=== PATIENT | female | born 1930 | race Caucasian/White ===

== ENCOUNTER 2018-02-19 16:01 | Inpatient (IN) | payer OTHER ==
--- NOTE | 2018-02-19 16:11 | EDPHY ---
HPI/HX/ROS/PE/MDM Narrative: CHIEF COMPLAINT: Dizziness, abnormal EKG HPI: This patient is an 87 year old female who is generally quite healthy. She arrives via EMS for evaluation of irregular heart rate. She states this has been ongoing intermittently for one year. She suspects this is sometimes provoked by her upstairs neighbor stomping around. She denies any chest pain. No recent cold symptoms or fever. She has right leg lymphedema which she states has been chronic since her mid 20s, but is somewhat worse lately as she has not been elevating the leg as much as usual. No shortness of breath, lightheadedness , extremity numbness or paresthesias, headaches, or other associated symptoms. HPI somewhat difficult to obtain as patient is a poor historian. REVIEW OF SYSTEMS: A comprehensive 10 system review of systems is otherwise negative aside from elements mentioned in the history of present illness and medical decision making. PMH: Chronic right lower extremity edema. SOCIAL HISTORY: Lives at [facility]. Retired. Single. PHYSICAL EXAM: General:Patient is alert, in no acute distress. ENT:Eyes are normal to inspection. ENT inspection normal. Neck: Normal inspection. Full range of motion. Respiratory:No respiratory distress. Breath sounds normal bilaterally. Cardiovascular: Regular tachycardia. Strong peripheral pulses. Normal cap refill. Abdomen:The abdomen is nontender to palpation. There are no peritoneal signs. There are normal bowel sounds. Back: Normal to inspection. No tenderness to palpation. Skin: Normal color. No rash. Warm and dry. Extremities: Normal appearance. Full range of motion. Neuro: Oriented x3. Normal motor function. Normal sensory function. ED Course: 87 y/o female presents for evaluation of irregular heart rate, dizziness. Regular tachycardia on exam. She does have considerable right lower extremity edema, which she states is chronic for her. Plan for EKG, labs including CBC, chemistries, troponin, d-dimer. EKG was ordered and interpreted by myself. Please see [employer] system for official reading. Sinus tachycardia with frequent PVCs. D-dimer elevated at 3.16. Troponin negative. Plan for CTA chest for further evaluation. Plan for additional labs including UA. 17:[address] Dewey, radiologist. CTA negative for PE. See report for additional details. Discussed results with patient. Plan to admit for further evaluation. She is amenable to this. Plan for additional labs including flu swab, TSH. 18:[address] Pineda, hospitalist. He accepts admission for dizziness, tachycardia. MDM: This patient presents with vague symptoms and is found to be in sinus tachycardia with frequent PVCs. The chronicity of this is unknown and limited by fact that patient is a poor historian. Extensive workup in the ED reveals no clear etiology for tachycardia. Patient requires admission for further workup. I see no signs of influenza, atrial fibrillation, ACS, hyperthyroidism , sepsis. - Data Points Imaging Results: Imaging Impressions Chest/Thorax CTA 02/19/18 17:06 Impression: 1. No visible pulmonary embolus. 2. Tiny bilateral pleural effusions. 3. Mild cardiomegaly. 4. Incompletely visualized left kidney, with parapelvic cyst versus mild hydronephrosis. 5. Borderline enlargement of the pulmonary arteries, which can be seen with pulmonary artery hypertension. 6. Additional findings, as above. Findings discussed with Tom Yan M.D., on February 19, 2018 at 1752. Imaging: Discussed imaging studies w/ on call Radiologist Laboratory Results: Laboratory Results 02/19/18 16:00 02/19/18 16:00 02/19/18 02/19/18 02/19/18 18:15 17:00 16:10 WBC RBC Hgb Hct MCV MCH MCHC RDW Plt Count MPV Neut % (Auto) Lymph % (Auto) Conway % (Auto) Eos % (Auto) Baso % (Auto) Nucleat RBC Rel Count Absolute Neuts (auto) Absolute Lymphs (auto) Absolute Monos (auto) Absolute Eos (auto) Absolute Basos (auto) Absolute Nucleated RBC Immature Gran % Immature Gran # RBC/WBC/PLT Morphology Platelet Estimate D-Dimer Sodium Potassium Chloride Carbon Dioxide Anion Gap BUN Creatinine Estimated GFR Glucose Calcium POC Troponin I 0.00 ng/mL ng/mL (0.00-0.08) TSH Urine Color YELLOW Urine Appearance CLEAR Urine pH 7.0 (5.0-7.5) Ur Specific [place] 1.011 (1.002-1.030) Urine Protein NEGATIVE (NEGATIVE) Urine Ketones NEGATIVE (NEGATIVE) Urine Blood NEGATIVE (NEGATIVE) Urine Nitrate NEGATIVE (NEGATIVE) Urine Bilirubin NEGATIVE (NEGATIVE) Urine Urobilinogen 4.0 EU H EU (0.2-1.0) Ur Leukocyte Esterase NEGATIVE (NEGATIVE) Urine Glucose NEGATIVE (NEGATIVE) Nasal Influenza A PCR NEGATIVE FOR FLU A (NEGATIVE) Nasal Influenza B PCR NEGATIVE FOR FLU B (NEGATIVE) 02/19/18 02/19/18 02/19/18 16:00 16:00 16:00 WBC RBC Hgb Hct MCV MCH MCHC RDW Plt Count MPV Neut % (Auto) Lymph % (Auto) Conway % (Auto) Eos % (Auto) Baso % (Auto) Nucleat RBC Rel Count Absolute Neuts (auto) Absolute Lymphs (auto) Absolute Monos (auto) Absolute Eos (auto) Absolute Basos (auto) Absolute Nucleated RBC Immature Gran % Immature Gran # RBC/WBC/PLT Morphology Platelet Estimate D-Dimer 3.16 ug/mLFEU H ug/mLFEU (0.00-0.50) Sodium 139 mEq/L mEq/L (135-145) Potassium 4.3 mEq/L mEq/L (3.5-5.2) Chloride 106 mEq/L mEq/L (97-110) Carbon Dioxide 26 mEq/l mEq/l (22-31) Anion Gap 7 mEq/L mEq/L (6-14) BUN 23 mg/dL mg/dL (7-23) Creatinine 0.8 mg/dL mg/dL (0.6-1.0) Estimated GFR > 60 Glucose 119 mg/dL H mg/dL (70-100) Calcium 9.0 mg/dL mg/dL (8.5-10.4) POC Troponin I TSH 2.050 uIU/mL uIU/mL (0.465-4.680) Urine Color Urine Appearance Urine pH Ur Specific [place] Urine Protein Urine Ketones Urine Blood Urine Nitrate Urine Bilirubin Urine Urobilinogen Ur Leukocyte Esterase Urine Glucose Nasal Influenza A PCR Nasal Influenza B PCR 02/19/18 16:00 WBC 10.97 10^3/uL H 10^3/uL (3.80-9.50) RBC 4.53 10^6/uL 10^6/uL (4.18-5.33) Hgb 13.8 g/dL g/dL (12.6-16.3) Hct 42.4 % % (38.0-47.0) MCV 93.6 fL fL (81.5-99.8) MCH 30.5 pg pg (27.9-34.1) MCHC 32.5 g/dL g/dL (32.4-36.7) RDW 13.7 % % (11.5-15.2) Plt Count 139 10^3/uL L 10^3/uL (150-400) MPV 10.0 fL fL (8.7-11.7) Neut % (Auto) 90.0 % H % (39.3-74.2) Lymph % (Auto) 2.6 % L % (15.0-45.0) Conway % (Auto) 6.6 % % (4.5-13.0) Eos % (Auto) 0.0 % L % (0.6-7.6) Baso % (Auto) 0.2 % L % (0.3-1.7) Nucleat RBC Rel Count 0.0 % % (0.0-0.2) Absolute Neuts (auto) 9.87 10^3/uL H 10^3/uL (1.70-6.50) Absolute Lymphs (auto) 0.29 10^3/uL L 10^3/uL (1.00-3.00) Absolute Monos (auto) 0.72 10^3/uL 10^3/uL (0.30-0.80) Absolute Eos (auto) 0.00 10^3/uL L 10^3/uL (0.03-0.40) Absolute Basos (auto) 0.02 10^3/uL 10^3/uL (0.02-0.10) Absolute Nucleated RBC 0.00 10^3/uL 10^3/uL (0-0.01) Immature Gran % 0.6 % % (0.0-1.1) Immature Gran # 0.07 10^3/uL 10^3/uL (0.00-0.10) RBC/WBC/PLT Morphology TNP Platelet Estimate TNP D-Dimer Sodium Potassium Chloride Carbon Dioxide Anion Gap BUN Creatinine Estimated GFR Glucose Calcium POC Troponin I TSH Urine Color Urine Appearance Urine pH Ur Specific [place] Urine Protein Urine Ketones Urine Blood Urine Nitrate Urine Bilirubin Urine Urobilinogen Ur Leukocyte Esterase Urine Glucose Nasal Influenza A PCR Nasal Influenza B PCR Medications Given: Discontinued Medications Sodium Chloride (Ns) 500 mls @ 0 mls/hr IV EDNOW ONE; Wide Open PRN Reason: Protocol Stop: 02/19/18 16:13 Last Admin: 02/19/18 16:24 Dose: 500 mls Point of Care Test Results: Chemistry 02/19/18 16:10 POC Troponin I 0.00 ng/mL ng/mL (0.00-0.08) General Time Seen by Provider: 02/19/18 16:03 Initial Vital Signs: Initial Vital Signs Temperature (C) 36.6 C 02/19/18 16:09 Heart Rate 113 H 02/19/18 16:09 Respiratory Rate 18 02/19/18 16:09 Blood Pressure 123/76 H 02/19/18 16:09 O2 Sat (%) 96 02/19/18 16:09 O2 Delivery Mode Room Air Allergies/Adverse Reactions: No Known Allergies Allergy (Unverified 02/19/18 16:09) Home Medications: Medication Instructions Recorded NK [No Known Home Meds] 02/19/18 Departure - Departure Disposition: [facility] Acute Clinical Impression: Dizziness Condition: Good Report Scribed for: Tom Yan Report Scribed by: Annalee Corbin Date of Report: 02/19/18 Time of Report: 16:08 Physician Review and Approval Statement: Portions of this note were transcribed by an ED scribe. I personally performed the history, physical exam, and medical decision making; and confirm the accuracy of the information in the transcribed note.
[2018-02-19] MEDS ORDERED: NS 500 ML IV ONE (16:12)
[2018-02-19 16:22] LABS: PLATELET COUNT 139 10^3/uL (150-400)
[2018-02-19] MEDS ORDERED: IOPAMIDOL (ISOVUE 370) 100 ML BTL IV ONE (17:11)
[2018-02-19] MEDS ORDERED: ONDANSETRON DISINTEGRATING 4 MG TAB PO PRN (19:37)
[2018-02-19] MEDS ORDERED: ONDANSETRON 4 MG/2 ML VIAL IVP PRN (19:37)
[2018-02-19] MEDS ORDERED: ACETAMINOPHEN 325 MG TAB PO PRN (19:37)
[2018-02-19] MEDS ORDERED: NS 1,000 ML IV SCH (19:45)
--- NOTE | 2018-02-19 20:30 | GHP ---
DATE OF ADMISSION: 02/19/2018 CHIEF COMPLAINT: Lightheadedness. HISTORY OF PRESENT ILLNESS: This is an 87-year-old female, who presents with lightheadedness. She l gabby at [facility]. She attributes her symptoms to her neighbor stomping around above her. She tyler cribes it as a mild lightheadedness that is worse when she walks; this is not really a dizziness. Yong breaux really has no other symptoms, including chest pain or shortness of breath. She did throw up once t his morning, and has not really been able to eat since then today. She has had no diarrhea. She is feeling hungry now and less nauseous. She denies other symptoms, including, recent fevers, headache, cough, sore throat, new rash. She has chronic lymphedema in her right leg. PAST MEDICAL/SURGICAL HISTORY: 1. Lymphedema. 2. Basal cell skin cancer, status post resection. 3. Cataract surgery. MEDICATIONS: Please see medication reconciliation. ALLERGIES: No known drug allergies. SOCIAL HISTORY: She lives at [facility]. She does not drink or smoke. FAMILY HISTORY: Reviewed and noncontributory. REVIEW OF SYSTEMS: A 10-point review of systems is conducted and is negative, except per HPI. PHYSICAL EXAM: VITAL SIGNS: Blood pressure 138/77, heart rate 106, respiration rate 20, saturating 97% on room air, temperature 36.6. GENERAL: The patient is a pleasant lady who is resting comfortab ly in no acute distress. HEENT: Normocephalic, atraumatic. CARDIOVASCULAR: Regular rate and rhyth m. No murmurs, rubs, or gallops. She is borderline tachycardic. PULMONARY: Lungs clear to auscult ation bilaterally. ABDOMEN: Soft, nontender, nondistended. SKIN: No rash. : No Leonardo. NEUROL OGIC: Alert and oriented x3. She is moving all extremities. PSYCHIATRIC: Normal mood and affect. LABS: White count is 10.9, platelets are 139. D-dimer is 3.1. Basic metabolic panel is normal. Tr oponin is negative. TSH is 2.0. Urinalysis is negative. Flu is negative. DATA: 1. Discussed with Dr. Yan. Will admit to med/surg with telemetry monitoring. 2. I personally viewed and interpreted her EKG. This shows this is either a sinus rhythm or a multi focal atrial tachycardia. I do not see any acute ischemic changes. 3. Chest and thorax CT angiogram shows no evidence of a PE. IMPRESSION AND PLAN: An 87-year-old female, admitted with ongoing tachycardia of unclear etiology. Tachycardia: She did have 1 episode of emesis, and has not tolerated much p.o. this morning. This d oes put her at risk for hypovolemia. Her EKG, I believe, shows multifocal atrial tachycardia. Her r ate is already dropping into the 80s when I am seeing her. I think it is reasonable to try some gent le hydration tonight, and consider low-dose trin[place] blockers tomorrow if she is still borderline tachyc ardic. Fortunately, other more life-threatening etiologies have been ruled out. I do not have any e vidence of an infection, either. This is a high-risk diagnosis, requiring ongoing monitoring on telemetry. Will recheck a troponin in the morning, as well. /[id number]/MODL
[2018-02-20 10:07] LABS: PLATELET COUNT 119 10^3/uL (150-400)
--- NOTE | 2018-02-20 16:10 | HOSPPROG ---
Hospitalist Progress Note Assessment/Plan: 87 year old female with pmh of basal cell carcinoma, lymphedema admitted with tachycardia after saying she felt mildly lightheaded. Noted to be jaundice this morning with labs showing hyperbilirubinemia and transaminitis. Tachycardia- ECG with sinus tach and lots of PACs, now tachycardia resolved. May have been due to hypovolemia as it seems to have resolved with fluids. Transaminitis- labs coincidentally revealed a fairly substantial transaminitis that is not suggestive of obstruction and patient is asymptomatic. US of her liver and abdomen showed only gallstones but no sludge or cholecystitis and no elevated alk phos. patient does not take any apap or medications that would cause elevated LFTs, no history of hepatitis, -check acute hep panel -check apap level -repeat LFTs in am Lymphedema- chronically swollen lower extremity. elevate leg and compression stocking. PPX-lovenox Fluids- NS Lytes- WNL nutrition- regular Cor- DNR Dispo- change to inpatient for further eval of hyperbilirubinemia and transaminitis Subjective: patient with no complaints today, eating fine, no ab pain, NV diarrhea or fevers. Objective: Vital Signs Temp Pulse Resp BP Pulse Ox 36.4 C 85 18 126/78 H 94 02/20/18 12:00 02/20/18 12:00 02/20/18 12:00 02/20/18 12:00 02/20/18 12:00 Laboratory Results 02/20/18 09:00 02/20/18 09:00 02/19/18 02/20/18 02/21/18 05:59 05:59 05:59 Intake Total 908 Balance 908 - Physical Exam Constitutional: no apparent distress, appears nourished, not in pain Eyes: PERRL, anicteric sclera, EOMI Ears, Nose, Mouth, Throat: moist mucous membranes, hearing normal, ears appear normal, no oral mucosal ulcers Cardiovascular: regular rate and rhythym, no murmur, rub, or gallop Respiratory: no respiratory distress, no rales or rhonchi, clear to auscultation Gastrointestinal: normoactive bowel sounds, soft, non-tender abdomen, no palpable masses Genitourinary: no bladder fullness, no bladder tenderness, no renal bruits Skin: other (jaundice and scleral icterus, lymphedema of LE with no evidence of infection) Musculoskeletal: full muscle strength, no muscle tenderness, normal joint ROM Neurologic: AAOx3, sensation intact bilaterally Psychiatric: interacting appropriately, not anxious, not encephalopathic, thought process linear Lymph, Heme, Immunologic: no cervical LAD, no supraclavicular LAD ICD10 Worksheet Patient Problems: Problems Problem Status Onset Dizziness Acute
--- NOTE | 2018-02-20 16:29 | PDMN ---
Medical Necessity Medical necessity: Pt meets INPT criteria per MD as of 02/20/18 and [facility] Gastroenterology [facility] (est. LOS >2 MN for further evaluation of hyperbilirubinemia and transaminitis; hx tachycardia - resolved and lymphedema).
[2018-02-21 03:12] LABS: HEPATITIS A ANTIBODY IGM (BCH) NEGATIVE (NEGATIVE); HEPATITIS B CORE AB IGM NEGATIVE (NEGATIVE); HEPATITIS B SURFACE ANTIGEN NEGATIVE (NEGATIVE); HEPATITIS C ANTIBODY TOTAL NEGATIVE (NEGATIVE)
[2018-02-21 05:28] LABS: PLATELET COUNT 126 10^3/uL (150-400)
--- NOTE | 2018-02-21 10:34 | CPEKG ---
Test Reason : OPEN Blood Pressure : / mmHG Vent. Rate : 094 BPM Atrial Rate : 054 BPM P-R Int : 138 ms QRS Dur : 082 ms QT Int : 323 ms P-R-T Axes : 057 042 035 degrees QTc Int : 404 ms Sinus tachycardia Multiple premature complexes, vent & supraven Confirmed by Tom Yan ([id number]) on 02/21/2018 10:34:20 AM Referred By: Confirmed By:Tom Yan
--- NOTE | 2018-02-21 14:22 | ASMTCMCOM ---
CM Note CM Note Notes: 87yo female admitted from [facility] for dizziness, borderline tachy. She has a Hx of Chronic lymphedema R LE, Basal cell CA, Cataract surg. May not have discharge needs. Date Signed: 02/20/2018 04:58 PM Electronically Signed By:Shivani Brooks LCSW
--- NOTE | 2018-02-21 14:22 | ASMTLACE ---
QUINTINE Acuity / Level of Answers: Yes Care: Did the patient have an inpatient admission? Comorbidities - select Answers: Any tumor (including all that apply lymphoma or leukemia) Other Notes: Dizziness # of Emergency department Answers: 1-2 visits in the last 6 months Score: 7 Date Signed: 02/20/2018 04:59 PM Electronically Signed By:Shivani Brooks LCSW
--- NOTE | 2018-02-21 14:23 | ASMTCMCOM ---
CM Note CM Note Notes: I went to speak w patient about MDPOA - she says she does not have one and asks if it "can just be [facility] [place]." I explained that she could appoint whoever she wanted but that she should probably talk to that person first. I asked for any emergency contact, and she gave me the number of her brother/HILARIO in [place] - Felipe and Ruchi Yanez [phone]. Patient appears to be very independent and self sufficient. No discharge needs anticipated. Date Signed: 02/21/2018 12:35 PM Electronically Signed By:Jaleesa Guallpa RN
--- NOTE | 2018-02-21 16:11 | HOSPPROG ---
Hospitalist Progress Note Assessment/Plan: 87 year old female with pmh of basal cell carcinoma, lymphedema admitted with tachycardia after saying she felt mildly lightheaded. Noted to be jaundice this morning with labs showing hyperbilirubinemia and transaminitis. Tachycardia- ECG with sinus tach and lots of PACs, now tachycardia resolved. May have been due to hypovolemia as it seems to have resolved with fluids. dc IVF Transaminitis- labs coincidentally revealed a fairly substantial transaminitis that is not suggestive of obstruction and patient is asymptomatic. US of her liver and abdomen showed only gallstones but no sludge or cholecystitis and no elevated alk phos. patient does not take any apap or medications that would cause elevated LFTs, no history of hepatitis, check acute hep panel check apap level repeat LFTs in am renal cyst/mass: almost certainly benign but does warrant imaging i discussed this w her. ct today if complex imaging findings, will discuss w her brother she struggled a bit processing the "if this then that" nature of the potential malignancy eval Lymphedema- chronically swollen lower extremity. elevate leg and compression stocking. PPX-lovenox Lytes- WNL nutrition- regular Cor- DNR Dispo- change to inpatient for further eval of hyperbilirubinemia and transaminitis Subjective: discussed renal cyst/mass findings Objective: Vital Signs Temp Pulse Resp BP Pulse Ox 36.5 C 80 20 151/111 H 96 02/21/18 10:57 02/21/18 12:15 02/21/18 10:57 02/21/18 10:57 02/21/18 10:57 Laboratory Results 02/21/18 04:23 02/21/18 04:23 02/20/18 02/21/18 02/22/18 05:59 05:59 05:59 Intake Total 955 Output Total 500 Balance 955 -500 - Physical Exam Constitutional: no apparent distress, appears nourished Ears, Nose, Mouth, Throat: moist mucous membranes, hearing normal Cardiovascular: regular rate and rhythym, no murmur, rub, or gallop Respiratory: no respiratory distress, no rales or rhonchi Gastrointestinal: normoactive bowel sounds, soft, non-tender abdomen Genitourinary: no bladder fullness, No mendosa in urethra Skin: warm, normal color Musculoskeletal: full muscle strength ICD10 Worksheet Patient Problems: Problems Problem Status Onset Dizziness Acute
[2018-02-21] MEDS ORDERED: IOPAMIDOL (ISOVUE-300) 100 ML BTL ONE (17:14)
--- NOTE | 2018-02-22 06:07 | CPEKG ---
Test Reason : tachycardia Blood Pressure : / mmHG Vent. Rate : 095 BPM Atrial Rate : 101 BPM P-R Int : 118 ms QRS Dur : 087 ms QT Int : 362 ms P-R-T Axes : 079 066 045 degrees QTc Int : 455 ms Sinus tachycardia Multiform ventricular premature complexes Confirmed by Kavon Andres ([id number]) on 02/22/2018 6:07:35 AM Referred By: Confirmed By:Kavon Andres
--- NOTE | 2018-02-22 15:23 | ASMTCMCOM ---
CM Note CM Note Notes: Spoke with pt in the room. Pt admitted for dizziness and EKG abnormalities and kept today for transaminitis. OT is recommending C, however pt states she is not home bound and does not plan to be upon discharge. Pt plans to discharge independently to [facility]. No CM needs noted at this time. CM to follow should needs change. Date Signed: 02/22/2018 03:22 PM Electronically Signed By:Estee Whitfield
--- NOTE | 2018-02-22 16:30 | HOSPPROG ---
Hospitalist Progress Note Assessment/Plan: 87 year old female with pmh of basal cell carcinoma, lymphedema admitted with tachycardia after saying she felt mildly lightheaded. Noted to be jaundice this morning with labs showing hyperbilirubinemia and transaminitis. Tachycardia- ECG with sinus tach and lots of PACs, now tachycardia resolved. May have been due to hypovolemia as it seems to have resolved with fluids. dc IVF resolved dc IVF Transaminitis- labs coincidentally revealed a fairly substantial transaminitis that is not suggestive of obstruction and patient is asymptomatic. US of her liver and abdomen showed only gallstones but no sludge or cholecystitis and no elevated alk phos. patient does not take any apap or medications that would cause elevated LFTs, no history of hepatitis, check acute hep panel check apap level trending down renal cyst/mass: CT images reviewed w radiology CT mass protocol demonstrates cystic mass w solid component, no hydro, no renal parenchymal mass not clearly cancer but cannot rule out based on available info i discussed at length with patient further workup. she hasnt seen a physician in 10 years. she is declining further workup at this point which is reasonable Lymphedema- chronically swollen lower extremity. elevate leg and compression stocking. PPX-lovenox Lytes- WNL nutrition- regular Cor- DNR Dispo- change to inpatient for further eval of hyperbilirubinemia and transaminitis Subjective: case discussed at length w dr retana Objective: Vital Signs Temp Pulse Resp BP Pulse Ox 36.6 C 88 16 157/48 H 96 02/22/18 12:00 02/22/18 12:00 02/22/18 12:00 02/22/18 12:00 02/22/18 12:00 Laboratory Results 02/21/18 04:23 02/22/18 05:50 02/21/18 02/22/18 02/23/18 05:59 05:59 05:59 Intake Total 955 350 Output Total 1900 600 Balance 955 -1550 -600 - Physical Exam Constitutional: no apparent distress, appears nourished Eyes: PERRL, anicteric sclera Ears, Nose, Mouth, Throat: moist mucous membranes, hearing normal Cardiovascular: regular rate and rhythym, no murmur, rub, or gallop Respiratory: no respiratory distress, no rales or rhonchi Gastrointestinal: normoactive bowel sounds, soft, non-tender abdomen Genitourinary: no bladder fullness, No mendosa in urethra Skin: warm, normal color Musculoskeletal: full muscle strength Neurologic: AAOx3 ICD10 Worksheet Patient Problems: Problems Problem Status Onset Dizziness Acute
--- NOTE | 2018-02-23 09:13 | PDIAF ---
- Diagnosis Diagnosis: elevated LFT's Code Status: Do Not Resuscitate - Medication Management Discharge Medications: electronically signed and located in the Home Medication List. - Orders Services needed: Registered Nurse Isolation Type: None - Follow Up Care Current Providers and Referrals: Patient,NotPresent [Unknown] - As per Instructions
--- NOTE | 2018-02-23 09:14 | HOSPPROG ---
Hospitalist Progress Note Assessment/Plan: 87 year old female with pmh of basal cell carcinoma, lymphedema admitted with tachycardia after saying she felt mildly lightheaded. Noted to be jaundice this morning with labs showing hyperbilirubinemia and transaminitis. Tachycardia- ECG with sinus tach and lots of PACs, now tachycardia resolved. May have been due to hypovolemia as it seems to have resolved with fluids. dc IVF resolved dc IVF Transaminitis- labs coincidentally revealed a fairly substantial transaminitis that is not suggestive of obstruction and patient is asymptomatic. US of her liver and abdomen showed only gallstones but no sludge or cholecystitis and no elevated alk phos. patient does not take any apap or medications that would cause elevated LFTs, no history of hepatitis, check acute hep panel check apap level trending down 02/23- this is alost certainly a resolving viral infection renal cyst/mass: CT images reviewed w radiology CT mass protocol demonstrates cystic mass w solid component, no hydro, no renal parenchymal mass not clearly cancer but cannot rule out based on available info i discussed at length with patient further workup. she hasnt seen a physician in 10 years. she is declining further workup at this point which is reasonable Lymphedema- chronically swollen lower extremity. elevate leg and compression stocking. PPX-lovenox Lytes- WNL nutrition- regular Cor- DNR Dispo- home today > 30 minutes Subjective: amenale to dc Objective: Vital Signs Temp Pulse Resp BP Pulse Ox 36.3 C 75 13 169/71 H 96 02/23/18 07:38 02/23/18 07:38 02/23/18 07:38 02/23/18 07:38 02/23/18 07:38 Laboratory Results 02/21/18 04:23 02/23/18 03:27 02/22/18 02/23/18 02/24/18 05:59 05:59 05:59 Intake Total 350 1460 Output Total 1900 1200 Balance -1550 260 - Physical Exam Constitutional: no apparent distress, appears nourished Eyes: PERRL, anicteric sclera Ears, Nose, Mouth, Throat: moist mucous membranes, hearing normal Cardiovascular: regular rate and rhythym, no murmur, rub, or gallop, No tachycardia Respiratory: no respiratory distress, no rales or rhonchi Gastrointestinal: normoactive bowel sounds, soft, non-tender abdomen Skin: warm Musculoskeletal: full muscle strength ICD10 Worksheet Patient Problems: Problems Problem Status Onset Dizziness Acute
[2018-02-23 11:23] VITALS: BP 147/72
--- NOTE | 2018-02-23 11:47 | ASDISCHSUM ---
Discharge Information Plan Status:Home with Home Health Medically Cleared to Leave:02/22/2018 Discharge Date:02/22/2018 CM D/C Disposition: ADT D/C Disposition: Projected Discharge Date:02/23/2018 11:00 AM Transportation at D/C: Discharge Delay Reason: Follow-Up Date:02/23/2018 11:00 AM Discharge Slot: Final Diagnosis:Dizziness-Tachy Placement Information Referral Type:*Home Health Care Services Referral ID:[id number] Provider Name:[facility] (formerly [facility]) Address 1:[address] [address] Address 2: City:[place] Selection Factors: State:[place] Patient Contact Information Contact Name:JORJE Relationship:Friend Address:[address] [place] Work Phone: City:[facility] Phone: State/Zip Code:[place] [address] Email: Financial Information Financial Class:Medicare Primary Plan Desc:MEDICARE INPATIENT Primary Plan Number:[id number] Secondary Plan Desc: Secondary Plan Number: Assessment Information [facility] CM Progress Note CM Note CM Note Notes: 87yo female admitted from [facility] for dizziness, borderline tachy. She has a Hx of Chronic lymphedema R LE, Basal cell CA, Cataract surg. May not have discharge needs. Date Signed: 02/20/2018 04:58 PM Electronically Signed By:Shivani Brooks LCSW LACE LACE Acuity / Level of Answers: Yes Care: Did the patient have an inpatient admission? Comorbidities - select Answers: Any tumor (including all that apply lymphoma or leukemia) Other Notes: Dizziness # of Emergency department Answers: 1-2 visits in the last 6 months Score: 7 Date Signed: 02/20/2018 04:59 PM Electronically Signed By:Shivani Brooks LCSW [facility] CM Progress Note CM Note CM Note Notes: I went to speak w patient about MDPOA - she says she does not have one and asks if it "can just be [facility]." I explained that she could appoint whoever she wanted but that she should probably talk to that person first. I asked for any emergency contact, and she gave me the number of her brother/HILARIO in [place] - Vincent Yanez [phone]. Patient appears to be very independent and self sufficient. No discharge needs anticipated. Date Signed: 02/21/2018 12:35 PM Electronically Signed By:Jaleesa Guallpa RN [facility] CM Progress Note CM Note CM Note Notes: Spoke with pt in the room. Pt admitted for dizziness and EKG abnormalities and kept today for transaminitis. OT is recommending [facility], however pt states she is not home bound and does not plan to be upon discharge. Pt plans to discharge independently to [facility]. No CM needs noted at this time. CM to follow should needs change. Date Signed: 02/22/2018 03:22 PM Electronically Signed By:Estee Whitfield Case Management Discharge Plan Note Case Management Discharge Discharge Order Complete? Answers: Yes Patient to Obtain Answers: Independently Medications Transportation Arranged Answers: Family/Friends EMTALA Complete Answers: No Case Management Transport Answers: No Form Complete Faxed Final Orders Answers: Yes Agency/Facility Transfer Answers: Yes Report Printed & Faxed to Receiving Agency Family Notified Answers: No Discharge Comments Notes: Pts case discussed w/ RILEY Pearson. Dr. Andrews is recommending HC, RN services. CM met w/ pt and she is agreeable to services. Pt does not have a preference on HC agency as long as they have availabilities. Referral sent to [facility]. [facility] is able to accept. Pt is arranging her own transportation home w/ [employer]. Pt has an account w/ them. Pt set up meals on wheels herself. No other needs at this time. CM available for changes. Plan: Yessica LIN Date Signed: 02/23/2018 11:44 AM Electronically Signed By:ROEL Murillo Intervention Information Intervention Type:*IM-Signed Date of Service:02/23/2018 09:54 AM Patient Type:Inpatient Staff Member:Pauline Vegas Hours: Discipline: Severity: Comment:
--- NOTE | 2018-02-23 12:19 | PDIAF ---
- Diagnosis Diagnosis: elevated LFT's Code Status: Do Not Resuscitate - Medication Management Discharge Medications: electronically signed and located in the Home Medication List. - Orders Services needed: Home Care, Registered Nurse Home Care Face to Face: I certify that this patient was under my care and that I had the required [id number] encounter meeting the encounter requirements on the discharge day. My findings support the fact that the patient is homebound as defined in Home Care Face to Face Continued: CMS Chapter 7 Medicare Benefits Manual 30.1.1 , The condition of the patient is such that there exists a normal inability to leave home and consequently, leaving home would require a considerable and taxing effort. Isolation Type: None - Follow Up Care Current Providers and Referrals: Patient,NotPresent [Unknown] - As per Instructions
--- NOTE | 2018-02-23 13:04 | ASMTCMCOM ---
CM Note CM Note Notes: JUNE Mahmood worked w/ pt and is recommending HC services. Dr. Andrews put in new interagency. New orders sent to [facility]. Date Signed: 02/23/2018 01:03 PM Electronically Signed By:ROEL Murillo
--- NOTE | 2018-02-23 15:40 | GDS ---
DISCHARGE DIAGNOSES: . Tachycardia. 1. Elevated liver function tests. 2. Cystic renal mass. Please see admission history and physical by Dr. Pineda. The patient presented with tachycardia. Sh e was ruled out for PE. She was incidentally found to have elevated LFTs. Acute hep serologies were negative. She is not a drinker. She did not have signs of liver failure, chronic liver disease. U ltrasound was unremarkable. Liver function tests trended down during this hospital stay without evidence of complication. The patient had an incidentally discovered cystic renal mass in the left kidney. This was seen on ab dominal ultrasound. It was a dedicated renal mass protocol CT was performed. I reviewed this with Cain Rodriguez. He felt that it was indeterminate for malignancy. I discussed the risks and benefits of further evaluation with this 87-year-old patient. We discussed it at great length. Ultimately, s he has decided to not further evaluate it. She is discharged home today. I will establish home RN for a couple of visits to verify that she is indeed thriving at home. I have a call into her primary care physician, Dr. Atiya Austin. /[id number]/[facility]
== END 2018-02-23 13:23 | disposition home health service (06) | DRG 310 ==
LOC: EDUNIT# → F3N 20:09 → OBSVTOIN 02-20 15:14 → F2W 02-21 10:43
PROVIDERS: ADMIT Student in an Organized Health Care Education/Training Program; ATTEND Student in an Organized Health Care Education/Training Program
DX: R00.0 Tachycardia, unspecified (principal); E86.9 Volume depletion, unspecified; R79.89 Other specified abnormal findings of blood chemistry; D41.02 Neoplasm of uncertain behavior of left kidney; Z85.820 Personal history of malignant melanoma of skin; Z66 Do not resuscitate
CPT/HCPCS: 84484-ER; 97116-GP; 97161-GP; 97166-GO; 97530-GO; 97530-GP; 97535-GO; G0378; G0472; G8978-GP-CI; G8979-GP-CI; G8980-GP-CI; G8987-GO-CI; G8988-GO-CI; Q9967

== ENCOUNTER 2018-03-19 10:36 | Emergency (ER) | payer OTHER ==
[2018-03-19] MEDS ORDERED: ONDANSETRON 4 MG/2 ML VIAL IVP ONE (10:41)
[2018-03-19] MEDS ORDERED: NS 1,000 ML IV ONE (10:41)
--- NOTE | 2018-03-19 10:42 | EDPHY ---
H & P Time Seen by Provider: 03/19/18 10:38 HPI/ROS: HPI: This 87-year-old female who presents with Chief Complaint: Nausea, vomiting, diarrhea Location: GI Quality: Nausea, vomiting, diarrhea Duration: Approximately 8 hr Signs and Symptoms: no fever, + nausea, + vomiting, no hematemesis, no blood in stool, no abdominal bloating, + diarrhea, no back pain, no urinary symptoms, no vaginal bleeding/discharge, no indigestion, no chest pain, no shortness of breath Timing: Acute, intermittent episodes Severity: Moderate to severe Context: Patient presents via EMS from [facility] with waking up this morning around 2:30 a.m. With sudden onset of nausea and vomiting every 30 min of stomach contents and then now accompanied by 3-4 liquid stools per the patient. She reports that she has not had any recent antibiotics. She only complains of abdominal cramping prior to emesis or diarrhea but denies any actual abdominal pain. Patient denies fever, urinary symptoms, back pain. Patient reports that she does not take any regular schedule medications. Has chronic right leg lymphedema since age 20. Modifying Factors: EMS started IV fluids Comment: ROS: A comprehensive 10 system review of systems is otherwise negative aside from elements mentioned in the history of present illness. MEDICAL/SURGICAL/SOCIAL HISTORY: Medical history: basal cell, right lower extremity edema since age 20. Postmenopausal. Surgical history: Denies Social history: Retired. Lives at [facility]. Denies drug, alcohol, tobacco use. Family history noncontributory. CONSTITUTIONAL: Elderly, talkative, interactive white female, awake and alert, no obvious distress HEENT: Atraumatic and normocephalic, PERRL, EOMI. Nares patent; no rhinorrhea; no nasal mucosal edema. Tympanic membranes clear. Oropharynx clear, no exudate and moist pink mucosa. Airway patent. No lymphadenopathy. No meningismus. Cardiovascular: Normal S1/S2, regular rate, regular rhythm, without murmur rub or gallop. PULMONARY/CHEST: Symmetrical and nontender. Clear to auscultation bilaterally. Good air movement. No accessory muscle usage. ABDOMEN: Soft, nondistended, nontender, no rebound, no guarding, no peritoneal signs, no masses or organomegaly. No CVAT. Hyperactive bowel sounds heard x4 quadrants. EXTREMITIES: 2/2 pulses, strength 5/5, no deformities, no clubbing, no cyanosis or edema. NEUROLOGICAL: no focal neuro deficits. GCS 15. SKIN: Warm and dry, pallor, no erythema. no rash. Good capillary refill. Source: Patient, RN/MD, EMS Exam Limitations: No limitations - Medical/Surgical History Hx Asthma: No Hx Chronic Respiratory Disease: No Hx Diabetes: No Hx Cardiac Disease: No Hx Renal Disease: No Hx Cirrhosis: No Hx Alcoholism: No Hx HIV/AIDS: No Hx Splenectomy or Spleen Trauma: No Other PMH: basil cell, right le edema since age 20. - Social History Smoking Status: Never smoked Constitutional: Initial Vital Signs Temperature (C) 36.4 C 03/19/18 10:35 Heart Rate 95 03/19/18 10:35 Respiratory Rate 16 03/19/18 10:35 Blood Pressure 132/73 H 03/19/18 10:35 O2 Sat (%) 98 03/19/18 10:35 O2 Delivery Mode Room Air Allergies/Adverse Reactions: No Known Allergies Allergy (Unverified 03/19/18 10:44) Home Medications: Medication Instructions Recorded Ondansetron Odt [Zofran Odt 4 mg 4 mg PO Q4 PRN #12 tab 03/19/18 (*)] Medical Decision Making - Diagnostics Imaging Results: Imaging Impressions Abdomen CT 03/19/18 10:44 Impression: 1. Grossly stable intra- and extrahepatic biliary dilatation with choledocholithiasis. 2. Stable appearance of the left collecting system with probable volume averaging of distorted collecting system accounting for ill-defined soft tissue density in the left renal pelvis. 3. Cholelithiasis without evidence of cholecystitis. 4. Stable nonspecific mildly prominent precaval lymph node. 5. Additional findings, as above. Findings discussed with Maude Mcbride PA-C on March 19, 2018 at 1206 hours. ED Course/Re-evaluation: Vital signs reviewed and show mild tachycardia. IV access, laboratory studies, stool studies, CT abdomen and pelvis scan ordered Patient given 1 L normal saline and IV Zofran 4 mg 1047: Notified by tech that i-STAT shows no gross abnormality-H&H 16.7/49, sodium 144, potassium 4.2, BUN 28, creatinine 0.8, glucose 104. okay for CT. 1110: LFTs and lipase mildly elevated likely due to vomiting/history of gallstones. 1230: Called by Dr. Dewey, radiology, who advised that CT abdomen and pelvis scan shows no signs of obstruction, colitis, diverticulitis, appendicitis. Does show stable biliary dilatation and choledocholithiasis that is unchanged from February study. 1235: AST 75 today, 02/25 was 86. ALT T today 154 and 02/25 was 170. Alk-phos 153 today and was 164 on 02/25. Total bili is 1.6 today and was 1.8 on 02/25. These labs remain slightly improved. Patient needs follow-up with General surgery and likely HIDA scan outpatient versus elective cholecystectomy versus watchful waiting due to advanced age. 1230: Patient gave stool sample and waiting analysis. Patient asking to drink liquids and eat soup. Offer patient admission and she politely declines and actually adamantly refuses that she wants to follow up with primary care provider early next week with referral of patient to General surgery. I feel that this is reasonable as patient is eating and drinking without difficulty with stable labs x1 month. 1300: While in the emergency room for over 3 and 0.5 hr patient had no episodes of emesis and only had 1 loose stool. This patient was seen under the supervision of my secondary supervising physician. I evaluated care for this patient with attending. Discussed this patient with Dr. Clements who did not see the patient. 1400: Stool studies are positive for the norovirus. Negative for C diff Differential Diagnosis: Differential diagnosis includes but is not limited to small-bowel obstruction, C diff colitis, gastroenteritis, gastritis, GI bleeding, electrolyte imbalance, diverticulitis. - Data Points Laboratory Results: Laboratory Results 03/19/18 10:30 03/19/18 10:30 03/19/18 03/19/18 03/19/18 10:45 10:30 10:30 WBC 8.76 10^3/uL 10^3/uL (3.80-9.50) RBC 4.87 10^6/uL 10^6/uL (4.18-5.33) Hgb 14.9 g/dL g/dL (12.6-16.3) POC Hgb 16.7 gm/dL H gm/dL (12.6-16.3) Hct 46.3 % % (38.0-47.0) POC Hct 49 % H % (38-47) MCV 95.1 fL fL (81.5-99.8) MCH 30.6 pg pg (27.9-34.1) MCHC 32.2 g/dL L g/dL (32.4-36.7) RDW 13.8 % % (11.5-15.2) Plt Count 177 10^3/uL 10^3/uL (150-400) MPV 10.5 fL fL (8.7-11.7) Neut % (Auto) Not Reported Lymph % (Auto) Not Reported [place] % (Auto) Not Reported Eos % (Auto) Not Reported Baso % (Auto) Not Reported Nucleat RBC Rel Count Not Reported Absolute Neuts (auto) Not Reported Absolute Lymphs (auto) Not Reported Absolute Monos (auto) Not Reported Absolute Eos (auto) Not Reported Absolute Basos (auto) Not Reported Absolute Nucleated RBC Not Reported Immature Gran % Not Reported Seg Neutrophils % 94.0 % % Band Neutrophils % 0.0 % % Lymphocytes % 3.0 % % Monocytes % 2.0 % % Eosinophils % 0.0 % % Basophils % 1.0 % % Metamyelocytes % 0.0 % % Myelocytes % 0.0 % % Promyelocytes % 0.0 % % Blast Cells % 0.0 % % Immature Gran # Not Reported Absolute Seg Neuts 8.23 10^3/uL H 10^3/uL (1.70-6.50) Absolute Band Neuts 0.00 10^3/uL 10^3/uL (0.00-0.70) Absolute Lymphocytes 0.26 10^3/uL L 10^3/uL (1.00-3.00) Absolute Monocytes 0.18 10^3/uL L 10^3/uL (0.30-0.80) Absolute Eosinophils 0.00 10^3/uL L 10^3/uL (0.03-0.40) Absolute Basophils 0.09 10^3/uL 10^3/uL (0.02-0.10) Absolute Metamyelocyte 0.00 10^3/mL 10^3/mL (0.00-0.00) Absolute Myelocytes 0.00 10^3/mL 10^3/mL (0.00-0.00) Absolute Promyelocytes 0.00 10^3/uL 10^3/uL (0.00-0.00) Absolute Plasma Cells 0.00 10^3/uL 10^3/uL (0.00-0.00) Nucleated RBCs 1.0 /100 WBC H /100 WBC (0-0) Absolute Blast Cells 0.00 10^3/uL 10^3/uL (0.00-0.00) Plasma Cells % 0.0 % % Platelet Estimate ADEQUATE (ADEQ) POC Sodium 144 mEq/L mEq/L (135-145) Sodium 140 mEq/L mEq/L (135-145) POC Potassium 4.2 mEq/L mEq/L (3.3-5.0) Potassium 4.5 mEq/L mEq/L (3.5-5.2) POC Chloride 105 mEq/L mEq/L (97-110) Chloride 108 mEq/L mEq/L (97-110) Carbon Dioxide 26 mEq/l mEq/l (22-31) Anion Gap 6 mEq/L mEq/L (6-14) POC BUN 28 mg/dL H mg/dL (7-23) BUN 29 mg/dL H mg/dL (7-23) Creatinine 0.8 mg/dL mg/dL (0.6-1.0) POC Creatinine 0.8 mg/dL mg/dL (0.6-1.0) Estimated GFR > 60 Glucose 102 mg/dL H mg/dL (70-100) POC Glucose 104 mg/dL H mg/dL (70-100) Calcium 9.3 mg/dL mg/dL (8.5-10.4) Total Bilirubin 1.6 mg/dL H mg/dL (0.1-1.4) Conjugated Bilirubin 0.4 mg/dL mg/dL (0.0-0.5) Unconjugated Bilirubin 1.2 mg/dL H mg/dL (0.0-1.1) AST 75 IU/L H IU/L (14-46) ALT 154 IU/L H IU/L (9-52) Alkaline Phosphatase 153 IU/L H IU/L (38-126) Total Protein 6.8 g/dL g/dL (6.3-8.2) Albumin 4.3 g/dL g/dL (3.5-5.0) Lipase 472 IU/L H IU/L (23-300) Microbiology Results: MICROBIOLOGY 03/19/18 11:45 Stool Gastrointestinal Tract Panel (PCR) - Final Norovirus Gi/Gii Medications Given: Discontinued Medications Sodium Chloride (Ns) 1,000 mls @ 0 mls/hr IV EDNOW ONE; Wide Open PRN Reason: Protocol Stop: 03/19/18 10:42 Last Admin: 03/19/18 10:53 Dose: 1,000 mls Ondansetron HCl (Zofran) 4 mg IVP EDNOW ONE Stop: 03/19/18 10:42 Last Admin: 03/19/18 10:53 Dose: 4 mg Point of Care Test Results: Chemistry 03/19/18 10:45 POC Sodium 144 mEq/L mEq/L (135-145) POC Potassium 4.2 mEq/L mEq/L (3.3-5.0) POC Chloride 105 mEq/L mEq/L (97-110) POC BUN 28 mg/dL H mg/dL (7-23) POC Creatinine 0.8 mg/dL mg/dL (0.6-1.0) POC Glucose 104 mg/dL H mg/dL (70-100) ISTAT H&H 03/19/18 10:45 POC Hgb 16.7 gm/dL H gm/dL (12.6-16.3) POC Hct 49 % H % (38-47) Departure - Departure Disposition: Home, Routine, Self-Care Clinical Impression: Cholelithiasis without cholecystitis, Cholelithiasis with choledocholithiasis, Gastroenteritis due to norovirus Condition: Good Instructions: Gallstones (ED), Low Fat Diet (ED), Acute Nausea and Vomiting (ED ) Additional Instructions: Consume a minimum of 8-10 glasses of water or electrolyte fluid replacement drinks that include Gatorade, Powerade, Pedialyte. Eat a bland diet for the next 48 hours and then slowly advance as tolerated to a low-fat diet. Take Zofran 1 tab every 4 hours as needed for nausea, vomiting. Call primary care provider on Wednesday for an appointment early next week. You have gallstones in your gallbladder and need referral to General surgery to discuss options including removal of your gallbladder. If your stool studies are positive and require antibiotics, you will be contacted by the emergency room. Return to the Emergency Room if symptoms do not resolve in the next 48-72 hours , you spike a fever > 102 F, or experience intractable abdominal pain/nausea/ vomiting. Referrals: Atiya Austin MD [Primary Care Provider] - 1-2 days without fail Eb Serrano MD [Medical Doctor] - 2-3 days, call for appt. Prescriptions: Ondansetron Odt [Zofran Odt 4 mg (*)] 4 mg PO Q4 PRN #12 tab PRN Reason: Nausea/Vomiting, Use 1st
[2018-03-19] MEDS ORDERED: IOPAMIDOL (ISOVUE 370) 100 ML BTL IV ONE (11:01)
[2018-03-19 11:03] LABS: PLATELET COUNT 177 10^3/uL (150-400)
[2018-03-19 13:02] VITALS: BP 135/86
== END 2018-03-19 13:14 | disposition home or self-care (01) ==
LOC: EDUNIT#
DX: K80.20 Calculus of gallbladder without cholecystitis without obstruction (principal); K80.50 Calculus of bile duct without cholangitis or cholecystitis without obstruction; K52.9 Noninfective gastroenteritis and colitis, unspecified
CPT/HCPCS: 74177; 96374; 99285; J2405; Q9967; 82435-PO; 82565-PO; 82947-PO; 84132-PO; 84295-PO; 84520-PO; 85014-ER

== ENCOUNTER 2018-03-21 02:43 | Inpatient (IN) | payer OTHER ==
[2018-03-21] MEDS ORDERED: NS 1,000 ML IV ONE (02:47)
--- NOTE | 2018-03-21 02:50 | EDPHY ---
H & P Stated Complaint: diarrhea Time Seen by Provider: 03/21/18 02:49 HPI/ROS: HPI The patient presents with ongoing diarrhea, she was discharged from the emergency department over 24 hr ago for nausea, vomiting, diarrhea due to norovirus given PCR testing positive for this. She went home and had some ongoing nausea and vomiting though is able to tolerate p. O.. This morning she developed fecal incontinence and multiple episodes of diarrhea. She was not able to manage at home so she called 911. She resides at [facility]. She denies any abdominal pain, dizziness, lightheadedness. REVIEW OF SYSTEMS 10 systems were reviewed and negative with the exception of the elements mentioned in the history of present illness. PMHx: Chronic right lower extremity edema Soc Hx: Resides at [facility], she is retired PHYSICAL General Appearance: Alert, no distress Eyes: Pupils equal and round no pallor or injection ENT, Mouth: Mucous membranes moist Respiratory: There are no retractions, lungs are clear to auscultation Cardiovascular: Regular rate and rhythm Gastrointestinal: Abdomen is soft and non-tender, no masses, bowel sounds normal Neurological: A&O, moves all extremities Skin: Warm and dry, no rashes Musculoskeletal: Neck is supple non tender Extremities: symmetrical, full range of motion Psychiatric: Patient is oriented X 3, there is no agitation Source: Patient, EMS, Old records Exam Limitations: No limitations - Medical/Surgical History Hx Asthma: No Hx Chronic Respiratory Disease: No Hx Diabetes: No Hx Cardiac Disease: No Hx Renal Disease: No Hx Cirrhosis: No Hx Alcoholism: No Hx HIV/AIDS: No Hx Splenectomy or Spleen Trauma: No Other PMH: basil cell, right le edema since age 20. - Social History Smoking Status: Never smoked Constitutional: Initial Vital Signs Temperature (C) 36.7 C 03/21/18 02:49 Heart Rate 69 03/21/18 02:49 Respiratory Rate 16 03/21/18 02:49 Blood Pressure 117/58 L 03/21/18 02:49 O2 Sat (%) 97 03/21/18 02:49 O2 Delivery Mode Room Air Allergies/Adverse Reactions: No Known Allergies Allergy (Verified 03/21/18 02:50) Home Medications: Medication Instructions Recorded NK [No Known Home Meds] 03/21/18 Medical Decision Making Differential Diagnosis: This is a an 87-year-old female brought in by ambulance from [facility] with fecal incontinence due to multiple episodes of diarrhea just prior to arrival. She was diagnosed with norovirus 2 days ago. Here, vital signs are in normal, she does appear clinically dehydrated. Her abdominal exam is benign, she does have ongoing diarrhea. Labs are relatively unremarkable. The patient would like to be admitted to the hospital. Differential diagnosis includes gastroenteritis, dehydration, electrolyte disturbance. The patient was given IV fluids, however continued to feel unwell. I worry about her ability to care for herself if she arrive covered in stool and says that there is stool all over her apartment. I plan to admit her to the hospital. I have discussed the case with Dr. Mitchell. - Data Points Laboratory Results: Laboratory Results 03/21/18 02:54 03/21/18 02:54 03/21/18 03/21/18 02:54 02:54 WBC 5.27 10^3/uL 10^3/uL (3.80-9.50) RBC 4.18 10^6/uL 10^6/uL (4.18-5.33) Hgb 12.9 g/dL g/dL (12.6-16.3) Hct 40.1 % % (38.0-47.0) MCV 95.9 fL fL (81.5-99.8) MCH 30.9 pg pg (27.9-34.1) MCHC 32.2 g/dL L g/dL (32.4-36.7) RDW 14.2 % % (11.5-15.2) Plt Count 146 10^3/uL L 10^3/uL (150-400) MPV 10.3 fL fL (8.7-11.7) Neut % (Auto) 61.6 % % (39.3-74.2) Lymph % (Auto) 19.2 % % (15.0-45.0) [place] % (Auto) 16.3 % H % (4.5-13.0) Eos % (Auto) 1.9 % % (0.6-7.6) Baso % (Auto) 0.6 % % (0.3-1.7) Nucleat RBC Rel Count 0.0 % % (0.0-0.2) Absolute Neuts (auto) 3.25 10^3/uL 10^3/uL (1.70-6.50) Absolute Lymphs (auto) 1.01 10^3/uL 10^3/uL (1.00-3.00) Absolute Monos (auto) 0.86 10^3/uL H 10^3/uL (0.30-0.80) Absolute Eos (auto) 0.10 10^3/uL 10^3/uL (0.03-0.40) Absolute Basos (auto) 0.03 10^3/uL 10^3/uL (0.02-0.10) Absolute Nucleated RBC 0.00 10^3/uL 10^3/uL (0-0.01) Immature Gran % 0.4 % % (0.0-1.1) Immature Gran # 0.02 10^3/uL 10^3/uL (0.00-0.10) Sodium 139 mEq/L mEq/L (135-145) Potassium 4.5 mEq/L mEq/L (3.5-5.2) Chloride 115 mEq/L H mEq/L (97-110) Carbon Dioxide 19 mEq/l L mEq/l (22-31) Anion Gap 5 mEq/L L mEq/L (6-14) BUN 20 mg/dL mg/dL (7-23) Creatinine 0.7 mg/dL mg/dL (0.6-1.0) Estimated GFR > 60 Glucose 80 mg/dL mg/dL (70-100) Calcium 8.1 mg/dL L mg/dL (8.5-10.4) Total Bilirubin 0.9 mg/dL mg/dL (0.1-1.4) AST 49 IU/L H IU/L (14-46) ALT 85 IU/L H IU/L (9-52) Alkaline Phosphatase 108 IU/L IU/L (38-126) Total Protein 5.3 g/dL L g/dL (6.3-8.2) Albumin 3.0 g/dL L g/dL (3.5-5.0) Specimen Hemolysis 103 Medications Given: Lactated Ringer's (Lr) 1,000 mls @ 100 mls/hr IV CONT GOYO Stop: 09/17/18 05:29 Last Admin: 03/21/18 06:10 Dose: 1,000 mls Discontinued Medications Sodium Chloride (Ns) 1,000 mls @ 0 mls/hr IV EDNOW ONE; Wide Open PRN Reason: Protocol Stop: 03/21/18 02:48 Last Admin: 03/21/18 03:16 Dose: 1,000 mls Departure - Departure Disposition: [facility] Inpatient Acute Clinical Impression: Diarrhea, Norovirus Condition: Good
[2018-03-21 03:07] LABS: PLATELET COUNT 146 10^3/uL (150-400)
[2018-03-21] MEDS ORDERED: ONDANSETRON 4 MG/2 ML VIAL IVP PRN (05:23)
[2018-03-21] MEDS ORDERED: ACETAMINOPHEN 325 MG TAB PO PRN (05:23)
[2018-03-21] MEDS ORDERED: ONDANSETRON DISINTEGRATING 4 MG TAB PO PRN (05:23)
--- NOTE | 2018-03-21 05:26 | PDGENHP ---
History and Physical - Chief Complaint loose stools - History of Present Illness 87yo generally healthy F here with 2 days of ongoing diarrhea. Started abruptly morning of 03/19. Stools are water, non-bloody. No associated abdominal pain, nausea, vomiting, fevers, or chills. She initially came to our ED on 03/19 and was diagnosed with norovirus via GI PCR. She was tolerating PO so was discharged back to [facility] where she resides in independent living. However , her frequency of diarrhea increased prompting her to call 911 today. She feels like she can't take care of herself due to her GI illness. Denies recent travel or antibiotics. No known sick contacts at [facility]. In the ED, she was noted to be incontinent of stool and noted to be dehydrated requiring admission to the hospital. Case discussed with ED physician Marilia Lagunas. History Information - Allergies/Home Medication List Allergies/Adverse Reactions: No Known Allergies Allergy (Verified 03/21/18 02:50) Home Medications: NK [No Known Home Meds] 03/21/18 [Last Taken Unknown] I have personally reviewed and updated: family history, medical history, social history, surgical history - Past Medical History Additional medical history: chronic RLE lymphedema, basal cell skin cancer s/p resction - Surgical History Additional surgical history: cataract surgery - Family History Positive for: non-pertinent - Social History Smoking Status: Never smoked Alcohol Use: None Drug Use: None Additional social history: Lives in [facility], [facility] Review of Systems Review of Systems: ROS: 10pt was reviewed & negative except for what was stated in HPI & below Physical Exam Physical Exam: Temp Pulse Resp BP Pulse Ox 36.7 C 73 17 119/78 96 03/21/18 02:49 03/21/18 05:15 03/21/18 05:15 03/21/18 05:15 03/21/18 05:15 Constitutional: no apparent distress, appears nourished, not in pain Eyes: PERRL, anicteric sclera, EOMI Ears, Nose, Mouth, Throat: dry mucous membranes Cardiovascular: regular rate and rhythym, no murmur, rub, or gallop, edema (RLE) Respiratory: no respiratory distress, no rales or rhonchi, clear to auscultation Gastrointestinal: normoactive bowel sounds, soft, non-tender abdomen, no palpable masses Genitourinary: no bladder fullness, no bladder tenderness Skin: erythema (anterior RLE (chronic per patient)) Musculoskeletal: full muscle strength, no muscle tenderness, normal joint ROM, no joint effusions Neurologic: AAOx3 Psychiatric: interacting appropriately, not anxious, not encephalopathic, thought process linear Lab Data & Imaging Review 03/21/18 02:54 03/21/18 02:54 WBC 5.27 10^3/uL (3.80-9.50) 03/21/18 02:54 RBC 4.18 10^6/uL (4.18-5.33) 03/21/18 02:54 Hgb 12.9 g/dL (12.6-16.3) 03/21/18 02:54 Hct 40.1 % (38.0-47.0) 03/21/18 02:54 MCV 95.9 fL (81.5-99.8) 03/21/18 02:54 MCH 30.9 pg (27.9-34.1) 03/21/18 02:54 MCHC 32.2 g/dL (32.4-36.7) L 03/21/18 02:54 RDW 14.2 % (11.5-15.2) 03/21/18 02:54 Plt Count 146 10^3/uL (150-400) L 03/21/18 02:54 MPV 10.3 fL (8.7-11.7) 03/21/18 02:54 Neut % (Auto) 61.6 % (39.3-74.2) 03/21/18 02:54 Lymph % (Auto) 19.2 % (15.0-45.0) 03/21/18 02:54 [place] % (Auto) 16.3 % (4.5-13.0) H 03/21/18 02:54 Eos % (Auto) 1.9 % (0.6-7.6) 03/21/18 02:54 Baso % (Auto) 0.6 % (0.3-1.7) 03/21/18 02:54 Nucleat RBC Rel Count 0.0 % (0.0-0.2) 03/21/18 02:54 Absolute Neuts (auto) 3.25 10^3/uL (1.70-6.50) 03/21/18 02:54 Absolute Lymphs (auto) 1.01 10^3/uL (1.00-3.00) 03/21/18 02:54 Absolute Monos (auto) 0.86 10^3/uL (0.30-0.80) H 03/21/18 02:54 Absolute Eos (auto) 0.10 10^3/uL (0.03-0.40) 03/21/18 02:54 Absolute Basos (auto) 0.03 10^3/uL (0.02-0.10) 03/21/18 02:54 Absolute Nucleated RBC 0.00 10^3/uL (0-0.01) 03/21/18 02:54 Immature Gran % 0.4 % (0.0-1.1) 03/21/18 02:54 Immature Gran # 0.02 10^3/uL (0.00-0.10) 03/21/18 02:54 Sodium 139 mEq/L (135-145) 03/21/18 02:54 Potassium 4.5 mEq/L (3.5-5.2) 03/21/18 02:54 Chloride 115 mEq/L (97-110) H 03/21/18 02:54 Carbon Dioxide 19 mEq/l (22-31) L 03/21/18 02:54 Anion Gap 5 mEq/L (6-14) L 03/21/18 02:54 BUN 20 mg/dL (7-23) 03/21/18 02:54 Creatinine 0.7 mg/dL (0.6-1.0) 03/21/18 02:54 Estimated GFR > 60 03/21/18 02:54 Glucose 80 mg/dL (70-100) 03/21/18 02:54 Calcium 8.1 mg/dL (8.5-10.4) L 03/21/18 02:54 Total Bilirubin 0.9 mg/dL (0.1-1.4) 03/21/18 02:54 AST 49 IU/L (14-46) H 03/21/18 02:54 ALT 85 IU/L (9-52) H 03/21/18 02:54 Alkaline Phosphatase 108 IU/L (38-126) 03/21/18 02:54 Total Protein 5.3 g/dL (6.3-8.2) L 03/21/18 02:54 Albumin 3.0 g/dL (3.5-5.0) L 03/21/18 02:54 Specimen Hemolysis 103 03/21/18 02:54 Assessment & Plan Assessment: 87yo generally healthy F who was recently diagnosed with norovirus presents with ongoing diarrhea and dehydration. Plan: 1. Norovirus gastroenteritis - Supportive care, IVF, anti-emetics 2. Abnormal LFTs: Choledocholithiasis and biliary ductal dilation on abdominal imaging from 03/19 which was stable from 02/2018. She is not cholangitic. Her bilirubin is now normalized and transaminases are improving from prior. Unlikely to be contributing to above. - Monitor LFTs - No indication for urgent cholecystectomy at present 3. Thrombocytopenia: Chronic, no e/o bleeding. 4. RLE lymphedema: Chronic. VTE ppx: LMWH Code: DNR, per discussion with patient Diet: clears Dispo: Admit under observation
[2018-03-21] MEDS: LR 1,000 ML IV SCH ×3 (06:10→21:45)
[2018-03-21] MEDS: ENOXAPARIN 40 MG/0.4 ML SYR SC SCH (10:46)
--- NOTE | 2018-03-21 14:28 | ASMTCMCOM ---
CM Note CM Note Notes: Pt is a 87 y/o female admitted for norovirus and gastroenteritis. Therapies have been ordered and awaiting recommendations. Needs are TBD at this time. CM to follow. Plan: TBD Date Signed: 03/21/2018 02:27 PM Electronically Signed By:ROEL Murillo
--- NOTE | 2018-03-21 17:24 | HOSPPROG ---
Hospitalist Progress Note Assessment/Plan: Subjective Follow-up on diarrhea and norovirus infection. Patient states her diarrhea still is ongoing no major improvement over the past 24 hr. No local abdominal pain or nausea or vomiting. Objective Vital signs as detailed below Physical exam General-awake alert conversant no acute distress Heart-regular rate and rhythm no murmurs Lungs-Clear to auscultation with normal respiratory effort Abdomen-soft nontender nondistended hyperactive bowel sounds -no Leonardo catheter in place Extremities-no significant pitting edema or calf pain with palpation Skin-no concerning skin rashes noted Labs as detailed below Assessment and plan Gastroenteritis-secondary to norovirus. Patient is having ongoing symptoms. Continue IV fluids and supportive measures. She requests a regular diet which has been ordered for her. Transaminitis-mild. Likely related to norvirus infection. Will reassess again tomorrow morning. Right lower extremity lymphedema-chronic. Patient states she developed this in her 20s. DVT prophylaxis-patient is on Lovenox. Disposition-patient is a do not attempt resuscitation code status. Objective: Vital Signs Temp Pulse Resp BP Pulse Ox 36.4 C 70 16 146/82 H 95 03/21/18 15:33 03/21/18 15:33 03/21/18 15:33 03/21/18 15:33 03/21/18 15:33 03/20/18 03/21/18 03/22/18 05:59 05:59 05:59 Intake Total 1000 Output Total 100 Balance 1000 -100 ICD10 Worksheet Patient Problems: Problems Problem Status Onset Diarrhea Acute Norovirus Acute Dizziness Acute
[2018-03-22] MEDS: LR 1,000 ML IV SCH (07:55)
[2018-03-22] MEDS: ENOXAPARIN 40 MG/0.4 ML SYR SC SCH (08:00)
--- NOTE | 2018-03-22 13:36 | HOSPPROG ---
Hospitalist Progress Note Assessment/Plan: 87yo generally healthy F here with 2 days of ongoing diarrhea. Started abruptly morning of 03/19. Stools are water, non-bloody. No associated abdominal pain, nausea, vomiting, fevers, or chills. She initially came to our ED on 03/19 and was diagnosed with norovirus via GI PCR. She was tolerating PO so was discharged back to [facility] where she resides in independent living. However , her frequency of diarrhea increased prompting her to call 911. First encounter , chart reviewed. *Gastroenteritis-secondary to norovirus. -supportive care -diarrhea has stopped *weakness -she is feeling extremely weak and is concerned she can't care for herself at her AL -she may need a SNF -reviewed PT and OT nots-recommending SNF *Transaminitis-mild. *Right lower extremity lymphedema-chronic. -started when she was in her 20's *plan: she will require another midnight stay for continued treatment, she is feeling too weak to care for herself. DC fluids. Subjective: Cammie is feeling too weak to be discharged. Objective: Vital Signs Temp Pulse Resp BP Pulse Ox 36.4 C 89 17 141/88 H 96 03/22/18 10:48 03/22/18 10:48 03/22/18 10:48 03/22/18 10:48 03/22/18 10:48 Laboratory Results 03/22/18 05:44 03/21/18 03/22/18 03/23/18 05:59 05:59 05:59 Intake Total 1000 3734 Output Total 100 Balance 1000 3634 - Physical Exam Constitutional: no apparent distress, appears nourished Eyes: PERRL Ears, Nose, Mouth, Throat: hearing normal Cardiovascular: regular rate and rhythym Respiratory: no respiratory distress Gastrointestinal: normoactive bowel sounds Skin: warm, other (right lower extremity w sig lymphedema) Musculoskeletal: generalized weakness Neurologic: AAOx3 Psychiatric: interacting appropriately ICD10 Worksheet Patient Problems: Problems Problem Status Onset Diarrhea Acute Norovirus Acute Dizziness Acute
--- NOTE | 2018-03-22 23:25 | PDMN ---
Medical Necessity Medical necessity: Pt meets IP criteria as of 03/22/2018 per and MCG M-170 ( gastroenteritis); los > 2 mn for ongoing tx and management of gastroenteritis secondary to norovirus with persistent diarrhea and weakness in an elderly pt; requiring IVF and PT/OT.
[2018-03-23] MEDS: ENOXAPARIN 40 MG/0.4 ML SYR SC SCH (10:09)
--- NOTE | 2018-03-23 13:46 | HOSPPROG ---
Hospitalist Progress Note Assessment/Plan: 87yo generally healthy F here with 2 days of ongoing diarrhea. Started abruptly morning of 03/19. Stools are water, non-bloody. No associated abdominal pain, nausea, vomiting, fevers, or chills. She initially came to our ED on 03/19 and was diagnosed with norovirus via GI PCR. She was tolerating PO so was discharged back to [facility] where she resides in independent living. However , her frequency of diarrhea increased prompting her to call 911. First encounter , chart reviewed. *Gastroenteritis-secondary to norovirus. -supportive care -diarrhea has stopped *weakness -she is feeling extremely weak and is concerned she can't care for herself at her AL - needs a SNF -reviewed PT and OT nots-recommending SNF *Transaminitis-mild. *Right lower extremity lymphedema-chronic. -started when she was in her 20's *plan: she will require another midnight stay for continued treatment, she is feeling too weak to care for herself. DC fluids. D/W CM. Subjective: Feels better. Still weak. No pain. Objective: Vital Signs Temp Pulse Resp BP Pulse Ox 36.6 C 88 16 155/72 H 98 03/23/18 12:00 03/23/18 12:00 03/23/18 12:00 03/23/18 12:00 03/23/18 12:00 03/22/18 03/23/18 03/24/18 05:59 05:59 05:59 Intake Total 100 Balance 100 - Physical Exam Constitutional: appears nourished, not in pain, chronically ill appearing Eyes: PERRL, anicteric sclera, EOMI Ears, Nose, Mouth, Throat: moist mucous membranes, hearing normal, ears appear normal Cardiovascular: regular rate and rhythym, No JVD, No edema Respiratory: no respiratory distress, no rales or rhonchi, reduced air movement Gastrointestinal: normoactive bowel sounds, No tenderness, No ascites Skin: warm, normal color, No mottled Musculoskeletal: normal joint ROM, no joint effusions, generalized weakness Neurologic: AAOx3 Psychiatric: interacting appropriately, not anxious, not encephalopathic ICD10 Worksheet Patient Problems: Problems Problem Status Onset Dizziness Acute Diarrhea Acute Norovirus Acute
--- NOTE | 2018-03-23 15:51 | ASMTCMCOM ---
CM Note CM Note Notes: Met with pt, she lives at [facility]. CM discussed PT/OT recommendations for SNF. Pt seemed confused, she thought we would be sending her to the AL at . CM explained [facility], pt unsure. Would like to stay in hospital until she can just go back to [place]. CM explained again that may not be possible. Pt is quite perplexed, does not know what to do. CM will send referrals to a few SNFs and revisit in the morning. DC Plan: SNF vs Homecare Date Signed: 03/23/2018 03:50 PM Electronically Signed By:Emerald Bailey RN
[2018-03-24] MEDS: ENOXAPARIN 40 MG/0.4 ML SYR SC SCH (09:26)
--- NOTE | 2018-03-24 15:13 | HOSPPROG ---
Hospitalist Progress Note Assessment/Plan: 87yo generally healthy F here with 2 days of ongoing diarrhea. Started abruptly morning of 03/19. Stools are water, non-bloody. No associated abdominal pain, nausea, vomiting, fevers, or chills. She initially came to our ED on 03/19 and was diagnosed with norovirus via GI PCR. She was tolerating PO so was discharged back to [facility] where she resides in independent living. However , her frequency of diarrhea increased prompting her to call 911. *Gastroenteritis-secondary to norovirus. -supportive care -diarrhea has stopped *weakness -she is feeling extremely weak and is concerned she can't care for herself at her AL - needs a SNF -reviewed PT and OT -recommending SNF *Transaminitis -mild. *Right lower extremity lymphedema-chronic. -started when she was in her 20's *plan: she will require another midnight stay for continued treatment, she is feeling too weak to care for herself. DC fluids. D/W CM. DC to SNF in am if stable Subjective: Still weak and nauseous. No pain. No diarrhea. Objective: Vital Signs Temp Pulse Resp BP Pulse Ox 36.7 C 85 16 118/64 92 03/24/18 12:00 03/24/18 12:00 03/24/18 12:00 03/24/18 12:00 03/24/18 12:00 03/23/18 03/24/18 03/25/18 05:59 05:59 05:59 Intake Total 100 Balance 100 - Physical Exam Constitutional: chronically ill appearing Eyes: PERRL, anicteric sclera Ears, Nose, Mouth, Throat: moist mucous membranes, hearing normal Cardiovascular: No JVD, No edema Respiratory: no respiratory distress, reduced air movement Gastrointestinal: No tenderness, No ascites Skin: warm, normal color Musculoskeletal: no joint effusions, generalized weakness Psychiatric: not anxious, not encephalopathic, poor memory ICD10 Worksheet Patient Problems: Problems Problem Status Onset Dizziness Acute Diarrhea Acute Norovirus Acute
--- NOTE | 2018-03-25 09:27 | PDIAF ---
- Diagnosis Diagnosis: Norovirus Code Status: Do Not Resuscitate - Medication Management Discharge Medications: electronically signed and located in the Home Medication List. - Orders Services needed: Registered Nurse, Certified Project Director, Physical Therapy, Occupational Therapy Isolation Type: Contact Isolation, Droplet Isolation Diet Recommendation: no restrictions on diet - Labs/Radiology LFT Date: 03/28/18 - Follow Up Care Current Providers and Referrals: Atiya Austin MD [Primary Care Provider] - As per Instructions
--- NOTE | 2018-03-25 09:44 | GDS ---
DIAGNOSES: 1. Norovirus/gastroenteritis. 2. Weakness/debility. 3. Mild transaminitis. 4. Chronic right lower extremity lymphedema. HOSPITAL COURSE: An 87-year-old female who was diagnosed with norovirus on March 19. She was disc harged back to [facility] where she lives independently; however, she was admitted the following day due to ongoing weakness. Care here has been supportive. She has improved. She tolerated a full br eakfast when I am seeing her. She is still quite weak, unable to fully care for herself at home. ysical Therapy has recommended shelter facility for her. She will be discharged to [facility] today. She had mild elevation in her liver enzymes, this was improving. Would recommend recheckin g this in a few days. I have written for this to be done at [facility]. FOLLOWUP: Dr. Austin within 1-2 weeks of discharge from [facility]. BILLING: I spent more than 30 minutes on the day of discharge coordinating care. /[id number]/MODL
[2018-03-25] MEDS: ENOXAPARIN 40 MG/0.4 ML SYR SC SCH (09:52)
[2018-03-25 11:06] VITALS: BP 136/80
--- NOTE | 2018-03-25 12:08 | ASMTLACE ---
LACE Length of stay for Answers: 3 days current admission Acuity / Level of Answers: Yes Care: Did the patient have an inpatient admission? Comorbidities - select Answers: Other Notes: Chronic RLE all that apply lymphedema; Basal cell skin cancer # of Emergency department Answers: 3-4 visits in the last 6 months Score: 10 Date Signed: 03/25/2018 12:07 PM Electronically Signed By:Emerald Bailey RN
--- NOTE | 2018-03-25 12:14 | ASMTDCNOTE ---
Case Management Discharge Discharge Order Complete? Answers: Yes Patient to Obtain Answers: Other Notes: [facility] Medications Transportation Arranged Answers: Other Notes: [facility] will Pick (Date 03/25/2018 02:30 PM & Time) Faxed Final Orders Answers: Yes Agency/Facility Transfer Answers: Yes Report Printed & Faxed to Receiving Agency Discharge Comments Notes: D/w , final orders faxed. Noelle at notified, RN to call report. Noelle informed of pt's bowel movements in regards to Norovirus, at this time pt is not symptomatic. Date Signed: 03/25/2018 12:14 PM Electronically Signed By:Emerald Bailey RN
--- NOTE | 2018-03-25 12:33 | ASMTCMCOM ---
CM Note CM Note Notes: Met with pt again this am about dc to SNF. Pt still a little perplexed, but agrees and prefers to stay in [place], [facility] agrees to accept and knows she is on contact and droplet precautions. DC Plan: [facility] Date Signed: 03/25/2018 12:33 PM Electronically Signed By:Emerald Bailey RN
--- NOTE | 2018-03-26 17:40 | ASDISCHSUM ---
Discharge Information Plan Status:SNF Medically Cleared to Leave: Discharge Date:03/25/2018 03:30 PM CM D/C Disposition:[facility] Facility ADT D/C Disposition:[facility] Facility Projected Discharge Date:03/25/2018 11:00 AM Transportation at D/C:Wheelchair Van Discharge Delay Reason: Follow-Up Date:03/25/2018 11:00 AM Discharge Slot: Final Diagnosis: Placement Information Referral Type:*[facility]/SNF Referral ID:[id number] Provider Name:[facility] Address 1:[address] Address 2: City:[place] Selection Factors: State:[place] Patient Contact Information Contact Name:MARY Relationship: Address:[address] [place] [address] Work Phone: City:[place] Alternate Phone: State/Zip Code:[place] [address] Email: Financial Information Financial Class:Medicare Primary Plan Desc:MEDICARE INPATIENT Primary Plan Number:[id number] Secondary Plan Desc: Secondary Plan Number: Assessment Information LACE LACE Length of stay for Answers: 3 days current admission Acuity / Level of Answers: Yes Care: Did the patient have an inpatient admission? 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 Therapies have been ordered and awaiting recommendations. Needs are TBD at this time. CM to follow. Plan: TBD Date Signed: 03/21/2018 02:27 PM Electronically Signed By:ROEL Murillo [facility] Progress Note CM Note CM Note Notes: Met with pt, she lives at [facility]. CM discussed PT/OT recommendations for SNF. Pt seemed confused, she thought we would be sending her to the [facility] at . CM explained mcc, pt unsure. Would like to stay in hospital until she can just go back to [place]. CM explained again that may not be possible. Pt is quite perplexed, does not know what to do. CM will send referrals to a few SNFs and revisit in the morning. DC Plan: SNF vs Homecare Date Signed: 03/23/2018 03:50 PM Electronically Signed By:Emerald Bailey RN Case Management Discharge Plan Note Case Management Discharge Discharge Order Complete? Answers: Yes Patient to Obtain Answers: Other Notes: [facility] Medications Transportation Arranged Answers: Other Notes: [employer] will Pick (Date 03/25/2018 02:30 PM & Time) Faxed Final Orders Answers: Yes Agency/Facility Transfer Answers: Yes Report Printed & Faxed to Receiving Agency Discharge Comments Notes: D/w , final orders faxed. Noelle at notified, RN to call report. Noelle informed of pt's bowel movements in regards to Norovirus, at this time pt is not symptomatic. Date Signed: 03/25/2018 12:14 PM Electronically Signed By:Emerald Bailey RN [facility] CM Progress Note CM Note CM Note Notes: Met with pt again this am about dc to SNF. Pt still a little perplexed, but agrees and prefers to stay in [place], [facility] agrees to accept and knows she is on contact and droplet precautions. DC Plan: [facility] Date Signed: 03/25/2018 12:33 PM Electronically Signed By:Emerald Bailey RN Intervention Information Intervention Type:*MYERS-Signed Date of Service:03/22/2018 11:54 AM Patient Type:Observation Staff Member:Pauline Vegas Hours: Discipline: Severity: Comment: Intervention Type:*IM-Signed Date of Service:03/25/2018 10:36 AM Patient Type:Inpatient Staff Member:Pauline Vegas Hours: Discipline: Severity: Comment:
== END 2018-03-25 15:30 | DRG 392 ==
LOC: EDUNIT# → F3E 05:34 → OBSVTOIN 03-22 16:02
PROVIDERS: ADMIT Internal Medicine; ATTEND Internal Medicine
DX: A08.11 Acute gastroenteropathy due to Norwalk agent (principal); R79.89 Other specified abnormal findings of blood chemistry; I89.0 Lymphedema, not elsewhere classified; D69.6 Thrombocytopenia, unspecified; R74.0 Nonspecific elevation of levels of transaminase and lactic acid dehydrogenase [LDH]; Z85.828 Personal history of other malignant neoplasm of skin
CPT/HCPCS: 97110-GP; 97116-GP; 97161-GP; 97165-GO; 97530-GO; 97535-GO; G0378; G8978-GP-CJ; G8979-GP-CH; J1650

== ENCOUNTER 2018-04-21 12:58 | Inpatient (IN) | payer OTHER ==
[2018-04-21] MEDS ORDERED: NS 500 ML IV ONE ×2 (13:25→15:18)
[2018-04-21 13:30] LABS: PLATELET COUNT 227 10^3/uL (150-400)
[2018-04-21 13:49] LABS: INR 0.92 (0.83-1.16); PROTIME(PATIENT) 12.6 SEC (12.0-15.0)
--- NOTE | 2018-04-21 14:05 | ASMTCMCOM ---
CM Note CM Note Notes: CM called from Colin at [facility] [phone]. Pt. lives in independent living of [facility]. Colin stated that the pt was in [facility] in [place] in March. After being released the pt has demonstrated an increased decline in cognition and she has been found "wandering". Colin reported that the patient does not have a designated POA and point of contact is the pt's brother who is unable to hear on the phone. Colin indicated that pt. would benefit from a higher level of care and that the pt. would like to go back to [facility]. PEDRITO plans TBDRIGOBERTO to follow. Date Signed: 04/21/2018 02:03 PM Electronically Signed By:Michael Grant LCSW
--- NOTE | 2018-04-21 14:09 | ASMTLACE ---
LACE Length of stay for Answers: Less than 1 day current admission Acuity / Level of Answers: Yes Care: Did the patient have an inpatient admission? # of Emergency department Answers: 3-4 visits in the last 6 months Score: 6 Date Signed: 04/21/2018 02:09 PM Electronically Signed By:Michael Grant LCSW
[2018-04-21] MEDS ORDERED: ONDANSETRON DISINTEGRATING 4 MG TAB PO PRN (15:10)
[2018-04-21] MEDS ORDERED: HYDROmorphONE/DILAUDID 1 MG/ML INJ IVP PRN (15:10)
[2018-04-21] MEDS ORDERED: ONDANSETRON 4 MG/2 ML VIAL IVP PRN (15:10)
--- NOTE | 2018-04-21 15:19 | PDGENHP ---
<Rosamaria White - Last Filed: 04/21/18 16:00> History and Physical - Chief Complaint RUQ pain - History of Present Illness HPI: This is an 87 y/o female with history of chronic RLE lymphedema presenting to the emergency room with jaundice and RUQ pain. She was recently discharged from [facility] after treatment for norovirus. During this time, it was noted of her abnormal LFTs and her choledocholithiasis and biliary ductal dilation was stable and she was not cholangitic. Today, she has quite elevated LFTs, appears jaundice, and has progressively worsening pain and tenderness to RUQ. She is unsure what alleviates the pain. Eating does not aggravate it. Denies chest pains, palpitations, shortness of breath, nausea, vomiting, diarrhea, dysuria. She is being admitted for further diagnostic work-up and monitoring. Past Medical History 1. Chronic RLE lymphedema (~Has had for 60 years) 2. Basal cell skin CA s/p resection Past Surgical History 1. Cataract surgery Social 1. Lives at [facility] 2. Denies tobacco, illicit, or ETOH use. History Information - Allergies/Home Medication List Allergies/Adverse Reactions: No Known Allergies Allergy (Verified 04/21/18 15:28) Home Medications: NK [No Known Home Meds] 03/21/18 [Last Taken Unknown] I have personally reviewed and updated: family history, medical history, social history, surgical history Past Medical History: See HPI list - Surgical History Additional surgical history: See HPI list - Family History Positive for: non-pertinent - Social History Smoking Status: Never smoked Alcohol Use: None Drug Use: None Review of Systems Review of Systems: ROS: 10pt was reviewed & negative except for what was stated in HPI & below Physical Exam Physical Exam: Lab data and imaging were reviewed. Case discussed with admitting physician, Dr. Sabrina Vazquez. WBC: 6.94 PT/INR: 12.6/0.92 K: 3.2 BUN/Cr: 20/.08 Total bilirubin/conjugated/unconjugated: 8.5/6.9/1.6 AST/ALT/Alk phos: 105/164/391 Total Protein: 6.0 Albumin: 3.4 Lipase: 361 Abdominal Ultrasound: Cholelithiasis with gallbladder thickening, sludge, multiple subcentimeter gallstones, pericholecystic fluid, dilated common bile duct up to 18 mm consistent with acute cholecystitis, with previous evidence of choledocholithiasis. Dilated pancreatic duct up to 3 mm, no pericholecystic fluid. Temp Pulse Resp BP Pulse Ox 36.7 C 77 20 167/90 H 95 04/21/18 13:10 04/21/18 15:08 04/21/18 15:08 04/21/18 15:08 04/21/18 15:08 Constitutional: no apparent distress, uncomfortable Eyes: PERRL, EOMI, icteric sclera Ears, Nose, Mouth, Throat: moist mucous membranes, hearing normal, ears appear normal, no oral mucosal ulcers Cardiovascular: no murmur, rub, or gallop, irregularly irregular, edema ( Chronic RLE) Peripheral Pulses: 2+: dorsalis-pedis (R) (Radial 2+), dorsalis-pedis (L) ( Radial 2+) Respiratory: no respiratory distress, no rales or rhonchi, clear to auscultation Gastrointestinal: normoactive bowel sounds, tenderness, waldron's sign, guarding Genitourinary: no bladder fullness, no bladder tenderness Skin: rash (Chronic RLE rash, not pruritic), other (Jaundice) Musculoskeletal: full muscle strength, no muscle tenderness, normal joint ROM, no joint effusions Neurologic: AAOx3, sensation intact bilaterally, CN II-XII Intact Psychiatric: interacting appropriately, not anxious, not encephalopathic, thought process linear Lymph, Heme, Immunologic: no cervical LAD, no supraclavicular LAD Lab Data & Imaging Review 04/21/18 13:05 04/21/18 13:05 WBC 6.94 10^3/uL (3.80-9.50) 04/21/18 13:05 RBC 4.47 10^6/uL (4.18-5.33) 04/21/18 13:05 Hgb 13.7 g/dL (12.6-16.3) 04/21/18 13:05 Hct 41.6 % (38.0-47.0) 04/21/18 13:05 MCV 93.1 fL (81.5-99.8) 04/21/18 13:05 MCH 30.6 pg (27.9-34.1) 04/21/18 13:05 MCHC 32.9 g/dL (32.4-36.7) 04/21/18 13:05 RDW 14.7 % (11.5-15.2) 04/21/18 13:05 Plt Count 227 10^3/uL (150-400) 04/21/18 13:05 MPV 11.1 fL (8.7-11.7) 04/21/18 13:05 Neut % (Auto) 72.7 % (39.3-74.2) 04/21/18 13:05 Lymph % (Auto) 16.6 % (15.0-45.0) 04/21/18 13:05 Duval % (Auto) 9.8 % (4.5-13.0) 04/21/18 13:05 Eos % (Auto) 0.1 % (0.6-7.6) L 04/21/18 13:05 Baso % (Auto) 0.4 % (0.3-1.7) 04/21/18 13:05 Nucleat RBC Rel Count 0.0 % (0.0-0.2) 04/21/18 13:05 Absolute Neuts (auto) 5.04 10^3/uL (1.70-6.50) 04/21/18 13:05 Absolute Lymphs (auto) 1.15 10^3/uL (1.00-3.00) 04/21/18 13:05 Absolute Monos (auto) 0.68 10^3/uL (0.30-0.80) 04/21/18 13:05 Absolute Eos (auto) 0.01 10^3/uL (0.03-0.40) L 04/21/18 13:05 Absolute Basos (auto) 0.03 10^3/uL (0.02-0.10) 04/21/18 13:05 Absolute Nucleated RBC 0.00 10^3/uL (0-0.01) 04/21/18 13:05 Immature Gran % 0.4 % (0.0-1.1) 04/21/18 13:05 Immature Gran # 0.03 10^3/uL (0.00-0.10) 04/21/18 13:05 PT 12.6 SEC (12.0-15.0) 04/21/18 13:05 INR 0.92 (0.83-1.16) 04/21/18 13:05 Sodium 140 mEq/L (135-145) 04/21/18 13:05 Potassium 3.7 mEq/L (3.5-5.2) 04/21/18 13:05 Chloride 107 mEq/L (97-110) 04/21/18 13:05 Carbon Dioxide 24 mEq/l (22-31) 04/21/18 13:05 Anion Gap 9 mEq/L (6-14) 04/21/18 13:05 BUN 20 mg/dL (7-23) 04/21/18 13:05 Creatinine 0.8 mg/dL (0.6-1.0) 04/21/18 13:05 Estimated GFR > 60 04/21/18 13:05 Glucose 76 mg/dL (70-100) 04/21/18 13:05 Calcium 8.9 mg/dL (8.5-10.4) 04/21/18 13:05 Total Bilirubin 8.5 mg/dL (0.1-1.4) H 04/21/18 13:05 Conjugated Bilirubin 6.9 mg/dL (0.0-0.5) H 04/21/18 13:05 Unconjugated Bilirubin 1.6 mg/dL (0.0-1.1) H 04/21/18 13:05 AST 105 IU/L (14-46) H 04/21/18 13:05 ALT 164 IU/L (9-52) H 04/21/18 13:05 Alkaline Phosphatase 391 IU/L (38-126) H 04/21/18 13:05 Total Protein 6.0 g/dL (6.3-8.2) L 04/21/18 13:05 Albumin 3.4 g/dL (3.5-5.0) L 04/21/18 13:05 Lipase 361 IU/L (23-300) H 04/21/18 13:05 Assessment & Plan Plan: This is an 87 y/o female with elevated LFTs and upon imaging dilated CBD consistent with acute cholecystitis, symptomatic with acute pain and jaundice however afebrile and no leukocytosis. 1. RUQ abdominal pain: Abdominal US revealing cholelithiasis with gallbladder thickening, sludge, multiple subcentimeter gallstones, pericholecystic fluid, dilated common bile duct up to 18 mm consistent with acute cholecystitis, with previous evidence of choledocholithiasis. Dilated pancreatic duct up to 3 mm, no pericholecystic fluid. February 2018 US revealed cholelithiasis with no cholecystitis indicating a change in status. Previous admission reveal negative hepatitis panel. -Initiated Ceftriaxone and Flagyl for now -Pain management PO/IVP PRN and IVF -CBC/CMP in AM -Discussed case with ER Dr. Chacha Rivers. She has spoken to Dr. Durham who will perform ERCP tomorrow therefore will be NPO at midnight -GI consulted -MRCP today 2. RLE lymphedema: Chronic. Diet: Clears, NPO at midnight tonight VTE ppx: SCDs Code: DNR Dispo: Admit to inpatient <Sabrina Vazquez - Last Filed: 04/21/18 17:24> History and Physical - History of Present Illness Review of Systems Review of Systems: Physical Exam Physical Exam: Temp Pulse Resp BP Pulse Ox 36.7 C 104 H 18 155/92 H 97 04/21/18 16:28 04/21/18 16:28 04/21/18 16:28 04/21/18 16:28 04/21/18 16:28 Lab Data & Imaging Review 04/21/18 13:05 04/21/18 13:05 WBC 6.94 10^3/uL (3.80-9.50) 04/21/18 13:05 RBC 4.47 10^6/uL (4.18-5.33) 04/21/18 13:05 Hgb 13.7 g/dL (12.6-16.3) 04/21/18 13:05 Hct 41.6 % (38.0-47.0) 04/21/18 13:05 MCV 93.1 fL (81.5-99.8) 04/21/18 13:05 MCH 30.6 pg (27.9-34.1) 04/21/18 13:05 MCHC 32.9 g/dL (32.4-36.7) 04/21/18 13:05 RDW 14.7 % (11.5-15.2) 04/21/18 13:05 Plt Count 227 10^3/uL (150-400) 04/21/18 13:05 MPV 11.1 fL (8.7-11.7) 04/21/18 13:05 Neut % (Auto) 72.7 % (39.3-74.2) 04/21/18 13:05 Lymph % (Auto) 16.6 % (15.0-45.0) 04/21/18 13:05 Duval % (Auto) 9.8 % (4.5-13.0) 04/21/18 13:05 Eos % (Auto) 0.1 % (0.6-7.6) L 04/21/18 13:05 Baso % (Auto) 0.4 % (0.3-1.7) 04/21/18 13:05 Nucleat RBC Rel Count 0.0 % (0.0-0.2) 04/21/18 13:05 Absolute Neuts (auto) 5.04 10^3/uL (1.70-6.50) 04/21/18 13:05 Absolute Lymphs (auto) 1.15 10^3/uL (1.00-3.00) 04/21/18 13:05 Absolute Monos (auto) 0.68 10^3/uL (0.30-0.80) 04/21/18 13:05 Absolute Eos (auto) 0.01 10^3/uL (0.03-0.40) L 04/21/18 13:05 Absolute Basos (auto) 0.03 10^3/uL (0.02-0.10) 04/21/18 13:05 Absolute Nucleated RBC 0.00 10^3/uL (0-0.01) 04/21/18 13:05 Immature Gran % 0.4 % (0.0-1.1) 04/21/18 13:05 Immature Gran # 0.03 10^3/uL (0.00-0.10) 04/21/18 13:05 PT 12.6 SEC (12.0-15.0) 04/21/18 13:05 INR 0.92 (0.83-1.16) 04/21/18 13:05 Sodium 140 mEq/L (135-145) 04/21/18 13:05 Potassium 3.7 mEq/L (3.5-5.2) 04/21/18 13:05 Chloride 107 mEq/L (97-110) 04/21/18 13:05 Carbon Dioxide 24 mEq/l (22-31) 04/21/18 13:05 Anion Gap 9 mEq/L (6-14) 04/21/18 13:05 BUN 20 mg/dL (7-23) 04/21/18 13:05 Creatinine 0.8 mg/dL (0.6-1.0) 04/21/18 13:05 Estimated GFR > 60 04/21/18 13:05 Glucose 76 mg/dL (70-100) 04/21/18 13:05 Calcium 8.9 mg/dL (8.5-10.4) 04/21/18 13:05 Total Bilirubin 8.5 mg/dL (0.1-1.4) H 04/21/18 13:05 Conjugated Bilirubin 6.9 mg/dL (0.0-0.5) H 04/21/18 13:05 Unconjugated Bilirubin 1.6 mg/dL (0.0-1.1) H 04/21/18 13:05 AST 105 IU/L (14-46) H 04/21/18 13:05 ALT 164 IU/L (9-52) H 04/21/18 13:05 Alkaline Phosphatase 391 IU/L (38-126) H 04/21/18 13:05 Total Protein 6.0 g/dL (6.3-8.2) L 04/21/18 13:05 Albumin 3.4 g/dL (3.5-5.0) L 04/21/18 13:05 Lipase 361 IU/L (23-300) H 04/21/18 13:05 Assessment & Plan Plan: Pt seen and examined. Elevated LFT's likely secondary to obstructive biliary process with subsequent cholecystitis. CBD 18 mm with choledocholithiasis noted on 03/2018 CT. GI has been consulted and pt will undergo ERCP in am. Agree with Ceftriaxone / Flagyl atbx coverage for acute cholecystitis and risk for cholangitis.
--- NOTE | 2018-04-21 15:25 | CPEKG ---
Test Reason : OPEN Blood Pressure : / mmHG Vent. Rate : 083 BPM Atrial Rate : 120 BPM P-R Int : 117 ms QRS Dur : 094 ms QT Int : 394 ms P-R-T Axes : 078 037 046 degrees QTc Int : 463 ms Sinus rhythm Multiple premature complexes, vent & supraven Confirmed by Chacha Rivers ([id number]) on 04/21/2018 3:25:04 PM Referred By: Chacha Rivers Confirmed By:Chacha Rivers
[2018-04-21] MEDS ORDERED: GADOBUTROL 10 ML VIAL IVP ONE (15:59)
--- NOTE | 2018-04-21 15:59 | EDPHY ---
H & P Stated Complaint: yellow face/eyes Time Seen by Provider: 04/21/18 13:02 HPI/ROS: CHIEF COMPLAINT: I am yellow HISTORY OF PRESENT ILLNESS: 87 year old female presents reporting that she was referred to the ED because she was noted to be yellow. She was recently discharged from [facility] after an admission for norovirus. At that time, mildly elevated LFT's prompted an US revealing choledocholithiasis and gall stones but no cholangitis/ cholecystitis. She has been well since discharge, although had brief RUQ pain earlier today when eating. Denies fever, chills, chest pain, vomiting, diarrhea, urinary complaints. REVIEW OF SYSTEMS: A comprehensive 10 system review of systems was reviewed and is otherwise negative aside from elements mentioned in the history of present illness and medical decision making. PAST MEDICAL HISTORY: Chronic RLE lymphedema SOCIAL HISTORY: Lives in assisted living. No alcohol. EXAM: GENERAL: Well-appearing, well-nourished and in no acute distress. Visibly jaundiced HEAD: Atraumatic, normocephalic. EYES: PERRL, EOMI, sclera icteric, conjunctiva are normal. ENT: TMs normal. Oropharynx clear with no exudates or lesions. NECK: Normal range of motion, supple without lymphadenopathy or JVD. LUNGS: Breath sounds clear to auscultation bilaterally and equal. No wheezes rales or rhonchi. HEART: Regular rate and rhythm without murmurs, rubs or gallops. ABDOMEN: Soft, tenderness in RUQ and epigastrium. No rebound or guarding, nondistended. No masses appreciated. BACK: No CVA tenderness, no spinal tenderness, step-offs or deformities EXTREMITIES: Normal range of motion, RLE with significant lymphedema. No clubbing or cyanosis. NEUROLOGICAL: Cranial nerves II through XII grossly intact. Normal speech, normal gait. 5/5 strength, normal movement in all extremities, normal sensation PSYCH: Normal mood, normal affect. SKIN: Warm, dry, normal turgor, jaundiced. - Personal History Current Tetanus/Diphtheria Vaccine: Yes - Medical/Surgical History Hx Asthma: No Hx Chronic Respiratory Disease: No Hx Diabetes: No Hx Cardiac Disease: No Hx Renal Disease: No Hx Cirrhosis: No Hx Alcoholism: No Hx HIV/AIDS: No Hx Splenectomy or Spleen Trauma: No Other PMH: basil cell, right le edema since age 20. - Social History Smoking Status: Never smoked Constitutional: Initial Vital Signs Temperature (C) 36.7 C 04/21/18 13:10 Heart Rate 81 04/21/18 13:10 Respiratory Rate 15 04/21/18 13:10 Blood Pressure 138/85 H 04/21/18 13:10 O2 Sat (%) 96 04/21/18 13:10 O2 Delivery Mode Room Air Allergies/Adverse Reactions: No Known Allergies Allergy (Verified 04/21/18 15:28) Home Medications: Medication Instructions Recorded NK [No Known Home Meds] 03/21/18 Medical Decision Making - Diagnostics EKG Interpretation: 12-LEAD EKG: Please see the full report in [place]. My interpretation: sinus with multiple PAC and PVC Imaging Results: RUQ Ultrasound: Impression: 1. Cholelithiasis with gallbladder wall thickening, sludge, multiple subcentimeter gallstones, pericholecystic fluid, and dilated common bile duct up to 18 mm consistent with acute cholecystitis , with previous evidence of choledocholithiasis. 2. Atherosclerotic aorta without aneurysm. 3. Dilated pancreatic duct up to 3 mm. No pericholecystic fluid. Findings and recommendations discussed with Emergency Department physician, Chacha Rivers MD, at 1453 hour, 04/21/2018. Final report concurs with initial preliminary interpretation. Dictated By: Dylan Villarreal Imaging: Discussed imaging studies w/ wardrobe technician Radiologist ED Course/Re-evaluation: 87 year old recently discharged from [facility] with known choledocolithiasis now presents with jaundice. IV established, fluids begun. Labs: Nomral WBC, normal PT/INR, bilirubin 8.5, LFTS: AST 105, ALT 169, alk phos 391. Discussed with admitting service; admit to Dr Vazquez. REquests US be ordered Discussed with gastroenterology, Dr Durham. Recommends MRCP. Will evaluate in hosptial and plan on ERCP. US results demonstrate signs of cholecystitis; given these findings plus patients age, will cover with ceftriaxone and flagyl. Resting comfortably, understands reason for admission. Differential Diagnosis: Diff dx considered included but not limited to choledocholithiasis, pancreatic cancer, cholangitis, cholecystitis, hepatitis. Consult/Admit Bed Type: Dr Vazquez, Med Surg - Data Points Laboratory Results: Laboratory Results 04/21/18 13:05 04/21/18 13:05 Medications Given: Sodium Chloride (Ns) 1,000 mls @ 100 mls/hr IV CONT GOYO Stop: 04/24/18 01:59 Last Admin: 04/22/18 19:52 Dose: 1,000 mls Ertapenem 1 gm/ Sodium (Chloride) 100 mls @ 200 mls/hr IV DAILY GOYO PRN Reason: Protocol Stop: 05/22/18 12:29 Last Admin: 04/23/18 10:15 Dose: 100 mls Discontinued Medications Sodium Chloride (Ns) 500 mls @ 1,000 mls/hr IV EDNOW ONE PRN Reason: Protocol Stop: 04/21/18 13:54 Last Admin: 04/21/18 14:45 Dose: 500 mls Ceftriaxone Sodium/Dextrose (Rocephin 1 Gm (Premix)) 50 mls @ 100 mls/hr IV DAILY GOYO PRN Reason: Protocol Stop: 05/21/18 15:29 Last Admin: 04/22/18 13:03 Dose: Not Given Metronidazole/Sodium Chloride (Flagyl 500 Mg (Premix)) 100 mls @ 100 mls/hr IV Q8H GOYO PRN Reason: Protocol Stop: 05/21/18 15:59 Last Admin: 04/22/18 13:04 Dose: Not Given Sodium Chloride (Ns) 500 mls @ 1,000 mls/hr IV EDNOW ONE PRN Reason: Protocol Stop: 04/21/18 15:47 Last Admin: 04/21/18 16:31 Dose: 500 mls Lactated Ringer's (Lr) 1,000 mls @ 0 mls/hr IV ONCE ONE PRN Reason: KVO Stop: 04/22/18 08:31 Last Admin: 04/22/18 09:11 Dose: 1,000 mls Potassium Chloride (Klor-Con) 10 - 40 meq PO ONCE ONE PRN Reason: Protocol Stop: 04/23/18 20:10 Last Admin: 04/23/18 20:17 Dose: 10 meq Departure - Departure Disposition: [facility] Acute Clinical Impression: Choledocholithiasis with acute cholecystitis, Jaundice Condition: Fair
[2018-04-21] MEDS: NS 1,000 ML IV SCH (17:46)
[2018-04-22] MEDS: NS 1,000 ML IV SCH ×2 (04:59→19:52)
[2018-04-22 05:36] LABS: PLATELET COUNT 168 10^3/uL (150-400)
--- NOTE | 2018-04-22 06:10 | GCON ---
[f rep st] CONSULTATION REFERRING PHYSICIAN: Robert Andrews MD REASON FOR CONSULTATION: This is for elevated liver tests and jaundice. Dear Dr. Andrews: Thank you very kindly for asking me to evaluate the patient in consultation for new onset jaundice. She is an 87-year-old female who has been having epigastric and some mild right-sided abdominal disco mfort and was noted by her primary care provider to have elevated liver tests. She interestingly has known choledocholithiasis from a previous admission, as well as known cholelithiasis, but as she was asymptomatic and given her age at that time, it seems as though this was left as an observational st rategy. This is the first time she has had abdominal pain and jaundice. She is admitted for further evaluation and management. Of note, she denies any fever but has noted some dark urine. She says h er stools have been normal in color and without paleness. Her abdominal pain is epigastric and right -sided and is intermittent. She describes it currently as being pretty mild. PAST MEDICAL HISTORY: Is for right lower extremity lymphedema that has been present since childhood. She has had: 1. Basal cell skin cancer. 2. Choledocholithiasis without previous intervention. 3. Cholelithiasis. PAST SURGICAL HISTORY: Is for cataract surgery. SOCIAL HISTORY: She is independent. She is living in [facility] independently. No tobacco. No al cohol. No substance abuse. ALLERGIES: None known. FAMILY HISTORY: Negative for pancreatic cancer, biliary cancer, liver cancer, gallstones. MEDICATIONS: Currently, she was started on ceftriaxone and Zofran as needed for nausea, IV fluids, o n Flagyl. REVIEW OF SYSTEMS: CONSTITUTIONAL: Denies fever, chills, or night sweats. HEENT: Denies headache. No visual disturbances. No trouble swallowing. No sore throat. No rhinorrhea. No headache. PULM ONARY: No shortness of breath or cough. CARDIOVASCULAR: No chest pain or palpitations. GI: Negat diane other than HPI. RHEUMATOLOGIC: No joint pain or swelling. DERMATOLOGIC: She has been jaundice d she says but no pruritus. NEURO: Denies paresthesias or focal motor weakness. No falls. ENDOCRI NE: No heat or cold intolerance. She has been thirsty. HEMATOLOGIC: No bruising or epistaxis. LY MPH: No glandular swelling but she does have chronic right lower extremity lymphedema, which she say s is unchanged. MUSCULOSKELETAL: No myalgias. PSYCHIATRIC: No depression, anxiety, or insomnia. GENITOURINARY: No dysuria, hematuria, or flank pain. GYNECOLOGIC: No vaginal bleeding. PHYSICAL EXAM: VITAL SIGNS: Blood pressure 155/92, pulse is 77, oxygenation is 97% on room air, tem perature is 36.7. GENERAL: Frail and somewhat elderly female in no acute distress. She is alert an d able to provide most of her own history. HEENT: Temporal wasting. Oropharynx clear. Sclerae are icteric. NECK: Supple. PULMONARY: Clear to auscultation bilaterally. CARDIOVASCULAR: Regular r ate and rhythm. Systolic murmur 2/6 at the left sternal border. Occasional ectopy. GI: Abdomen is somewhat tender to palpation in the epigastric and right upper quadrant without rebound or guarding. No palpable gallbladder. No ascites. No organomegaly. Negative Brownlee sign. No abdominal bruit. MUSCULOSKELETAL: No joint swelling, deformity or warmth. DERMATOLOGIC: There is jaundice. No br uising or arterial venous malformations. NEUROLOGIC: Alert to person, place, and time. Speech is n ormal. Motor nonfocal. DATABASE: Includes the following. White blood count 6.9, hematocrit 41.6, platelets 227. INR is 0. 92. Total bilirubin 8.5 with a direct of 6.9, AST is 105, ALT 164, alkaline phosphatase 391, lipase is 361, albumin 3.4. Imaging includes an MRCP, April 21, 2018, which shows intrahepatic ductal dilatation, extrahepatic ductal dilatation to the largest diameter of 18 mm. There is a 1 cm distal common bile duct stone. The gallbladder is distended with sludge in gallstones. There is also mild gallbladder wall thicken ing. The liver is unremarkable. The pancreas is not specifically commented on. IMPRESSION: 1. Epigastric and right upper quadrant pain. 2. Jaundice. 3. Obstructed liver function tests with both cholestasis and transaminitis. 4. Mild elevation in lipase. 5. Choledocholithiasis. 6. Biliary duct dilatation from obstruction. RECOMMENDATIONS: 1. Clear liquid diet. 2. N.p.o. after midnight. 3. A.m. LFTs and lipase. 4. ERC for attempt at biliary stone removal and resolution of obstruction. 5. Agree with prophylactic antibiotics. 6. She is at increased risk for her procedure due predominantly to her age. Anesthesia consultation will be arranged for her ERC tomorrow. 7. Surgical consultation for cholecystectomy pending the results of ERCP. /[id number]/MODL
[2018-04-22] MEDS ORDERED: IOTHALAMATE MEG (CONRAY) 50 ML VIAL IV ONE (08:22)
[2018-04-22] MEDS ORDERED: LR 1,000 ML IV ONE (08:30)
--- NOTE | 2018-04-22 08:46 | PDANEPAE ---
ANE Past Medical History - Cardiovascular History Hx Hypertension: No Hx Arrhythmias: No Hx Chest Pain: No Hx Coronary Artery / Peripheral Vascular Disease: No Hx CHF / Valvular Disease: No Hx Palpitations: No - Pulmonary History Hx COPD: No Hx Asthma/Reactive Airway Disease: No Hx Recent Upper Respiratory Infection: No Hx Oxygen in Use at Home: No Hx Sleep Apnea: No Sleep Apnea Screening Result - Last Documented: Negative - Endocrine History Hx Diabetes: No - Renal History Hx Renal Disorders: No - Liver History Hx Hepatic Disorders: Yes Hepatic History Comment: Elevated LFT's - Chronic Pain History Chronic Pain: No ANE Review of Systems Review of Systems: - Exercise capacity METS (RN): 3 METS ANE Patient History - Allergies Allergies/Adverse Reactions: No Known Allergies Allergy (Verified 04/21/18 15:28) - Home Medications Home Medications: NK [No Known Home Meds] 03/21/18 [Last Taken Unknown] - NPO status NPO Since - Liquids (Date): 04/21/18 NPO Since - Liquids (Time): 00:00 NPO Since - Solids (Date): 04/21/18 NPO Since - Solids (Time): 00:00 - Smoking Hx Smoking Status: Never smoked - Alcohol Use Alcohol Use: None - Family Anes Hx Family Anes Hx: none ANE Labs/Vital Signs - Labs Result Diagrams: 04/22/18 04:49 04/22/18 04:49 - Vital Signs Vital Signs: reviewed preoperatively; see RN documention for details Blood Pressure: 147/80 Heart Rate: 80 Respiratory Rate: 14 O2 Sat (%): 93 Height: 165.1 cm Weight: 58.06 kg ANE Physical Exam - Airway Neck exam: decreased ROM Mallampati Score: Class 3 Mouth exam: dentures, small mouth opening - Pulmonary Pulmonary: clear to auscultation - Cardiovascular Cardiovascular: regular rate and rhythym, no murmur, rub, or gallop - ASA Status ASA Status: III ANE Anesthesia Plan Anesthesia Plan: general endotracheal anesthesia
[2018-04-22] MEDS ORDERED: PROPOFOL 200 MG/20 ML VIAL ONE (09:27)
[2018-04-22] MEDS ORDERED: fentaNYL 100 MCG/2 ML INJ ONE (09:27)
--- NOTE | 2018-04-22 09:28 | PDMN ---
Medical Necessity Medical necessity: Pt meets IP criteria as of 04/21/2018 per and [facility] [place] M-[id number] ( Gallbladder or Bile Duct Inflammation or Stone); est los > 2 mn for ongoing tx and management of cholecystitis with gallbladder thickening, sludge, pericholecystic fluid, and dilated bile and pancreatic duct noted on imaging as well as jaundice and RUQ pain; requiring IV ABX, pain management, serial labs, surgical and GI consultation with planned MRCP, PT/OT and management of chronic conditions including lymphedema and basal cell skin CA.
[2018-04-22] MEDS ORDERED: LIDOCAINE 2% 5 ML SDV ONE (09:31)
[2018-04-22] MEDS ORDERED: DEXAMETHASONE 4 MG/ML VIAL ONE (09:32)
[2018-04-22] MEDS ORDERED: ONDANSETRON 4 MG/2 ML VIAL ONE (09:40)
[2018-04-22] MEDS ORDERED: INDOMETHACIN 50 MG SUPP PR ONE (09:53)
--- NOTE | 2018-04-22 09:57 | HOSPPROG ---
Hospitalist Progress Note Assessment/Plan: This is an 87 y/o female with history of chronic RLE lymphedema presenting to the emergency room with jaundice and RUQ pain. She was recently discharged from [facility] after treatment for norovirus. During this time, it was noted of her abnormal LFTs and her choledocholithiasis and biliary ductal dilation was stable and she was not cholangitic. First encounter, chart reviewed. * Epigastric and right upper quadrant pain. -gallbladder is distended w sludge and gall stones per imaging *Choledocholithiasis -ERCP today showed this w complete removal -for now will cont Ertapenem (may not need abx) -dc Ceftriaxone, causes more sludge -closely monitor for s/sx of pancreatitis *jaundice -due to the above -recheck labs in a.m. *Biliary duct dilation from obstruction *hypokalemia -add protocol *plan: repeat labs in the a.m., see how she does w clear liquids, advance diet if stable. Subjective: Cammie is feeling fine after the ERCP. Objective: Vital Signs Temp Pulse Resp BP Pulse Ox 36.8 C 80 14 147/80 H 93 04/22/18 08:39 04/22/18 09:01 04/22/18 09:01 04/22/18 09:01 04/22/18 09:01 Laboratory Results 04/22/18 04:49 04/22/18 04:49 04/21/18 04/22/18 04/23/18 05:59 05:59 05:59 Intake Total 500 Output Total 600 200 Balance -100 -200 PT 12.6 SEC (12.0-15.0) 04/21/18 13:05 INR 0.92 (0.83-1.16) 04/21/18 13:05 - Physical Exam Constitutional: no apparent distress, not in pain Eyes: PERRL Ears, Nose, Mouth, Throat: hearing normal Cardiovascular: regular rate and rhythym Respiratory: no respiratory distress Gastrointestinal: normoactive bowel sounds, soft, non-tender abdomen Skin: warm, other (jaundice) Neurologic: AAOx3 Psychiatric: interacting appropriately ICD10 Worksheet Patient Problems: Problems Problem Status Onset Diarrhea Acute Dizziness Acute Norovirus Acute
[2018-04-22] MEDS ORDERED: SUCCINYLCHOLINE CHLORIDE 200 MG/10 ML SYR IVP ONE (09:58)
[2018-04-22] MEDS ORDERED: LABETALOL HCL 5 MG/ML 20 ML MDV IVP PRN (10:49)
[2018-04-22] MEDS ORDERED: LR 500 ML IV PRN (10:49)
[2018-04-22] MEDS ORDERED: DIAZEPAM 5 MG/ML 1 ML SYR IVP PRN (10:49)
[2018-04-22] MEDS ORDERED: HYDROmorphONE/DILAUDID 2 MG/ML INJ IVP PRN (10:49)
[2018-04-22] MEDS ORDERED: NALOXONE HCL 0.4 MG/ML INJ IVP PRN (10:49)
[2018-04-22] MEDS ORDERED: fentaNYL 100 MCG/2 ML INJ IVP PRN (10:49)
[2018-04-22] MEDS ORDERED: ONDANSETRON 4 MG/2 ML VIAL IVP PRN (10:49)
[2018-04-22] MEDS ORDERED: MEPERIDINE 25 MG/0.5 ML AMP IVP PRN (10:49)
[2018-04-22] MEDS ORDERED: ALBUTEROL 3 ML DEYVIAL IH PRN (10:49)
--- NOTE | 2018-04-22 11:01 | GIREPORT ---
[facility] Surgical Services - Endoscopy Department Patient Name: Cammie Yanez Procedure Date: 04/22/2018 8:17 AM Patient Type: Inpatient Attending MD/ ER Physician: Tom Durham MD Procedure: ERCP Indications: Common bile duct stone(s), Abdominal pain of suspected biliary origin Providers: Tom Durham MD Medicines: General Anesthesia, Rocephin 1 g IV, Flagyl 250mg IV (Given on medical floor), Indocin 50mg RI once. Complications: No immediate complications. Description of Procedure: After obtaining informed consent, the scope was passed under direct vis ion. Throughout the procedure, the patient's blood pressure, pulse, and oxyg en saturations were monitored continuously. The Duodenalscope was introduc ed through the mouth, and advanced to the duodenum and used to inject cont rast into the bile duct. The ERCP was accomplished without difficulty. The patient tolerated the procedure well. Findings: The retail loss prevention investigator film was normal. The esophagus was successfully intubated und er direct vision. The scope was advanced from the mouth to the duodenum. T he pharynx, larynx and associated structures, as well as the upper GI trac t, were normal. The major papilla was bulging. There was a arline-ampullary diverticula. A 0.035 inch straight standard wire was passed into the pancreatic duct 4 times. Ultimately the wire was left in the pancreatic duct and a second wire was then able to be advanced into the biliary tree. T he first wire was removed. The traction (standard) sphincterotome was pass ed over the guidewire and the bile duct was then deeply cannulated. Contra st was injected. I personally interpreted the bile duct images. There was appropriate flow of contrast through the ducts. Image quality was adequ ate. The main bile duct was diffusely dilated, with a stone causing an obstruction. The largest diameter was 15 mm. The lower third of the zack n duct contained one stone, which was 15 mm in diameter. A 12 mm biliary sphincterotomy was made with a monofilament traction (standard) sphincterotome using ERBE electrocautery. There was no post-sphincterot [place] bleeding. The biliary tree was swept with a 15 mm balloon starting at t he bifurcation. Sludge was swept from the duct. All stones were removed. Nothing was found. Estimated Blood Loss: Estimated blood loss: none. Post Op Diagnosis: - The major papilla appeared to be bulging. - Arline-ampullary diverticula. - The entire main bile duct was dilated, with a stone causing an obstru ction. - Choledocholithiasis was found. Complete removal was accomplished by biliary sphincterotomy and balloon extraction. - A biliary sphincterotomy was performed. - The biliary tree was swept and nothing was found. Recommendation: - [facility] patient to [facility] for [facility] care. - Clear liquid diet today. ADAT tomorrow AM if doing clinically well. - Check liver enzymes (AST, ALT, alkaline phosphatase, bilirubin), hemo gram with white blood cell count and platelets and electrolyte panel in the morning. - Watch for pancreatitis, bleeding, perforation, and cholangitis. - Continue antibiotics for now but if LFTs improved and no evidence of infection could stop these tomorrow. - Thank you for allowing me to be involved in the care of your patient. Attending Participation: I personally performed the entire procedure without the assistance of a fellow, resident or surg ical nursing assistant. Tom Durham MD Tom Durham MD 04/22/2018 11:01:28 AM This report has been signed electronicallyDavid MD Marva Number of Addenda: 0 Note Initiated On: 04/22/2018 8:17 AM [email or web address]
--- NOTE | 2018-04-22 11:47 | POSTANESTH ---
Post Anesthetic Evaluation Cardiovascular Status: Normal, Stable Respiratory Status: Normal, Stable Level of Consciousness/Mental Status: Can Participate in Eval Pain Control: Adequate, Prn Tx Ordered Nausea/Vomiting Control: Adequate, Prn Tx Ordered Complications Possibly Related to Anesthesia: None Noted
--- NOTE | 2018-04-22 12:09 | ASMTCMCOM ---
CM Note CM Note Notes: Pts case discussed w/ Grazyna Wells NP. Pt went for an ERCP today. Therapies have been ordered and awaiting recommendations. Needs are TBD at this time. CM reached out to spiritual [facility] to see if they can name someone MDPOA. CM to follow. Date Signed: 04/22/2018 12:09 PM Electronically Signed By:ROEL Murillo
[2018-04-22] MEDS: ERTAPENEM 1 GM in NS 100 ML IV SCH (13:07)
[2018-04-22] MEDS ORDERED: PROTOCOL POTASSIUM 1 DOSE MISC PRN (17:36)
[2018-04-23 05:21] LABS: PLATELET COUNT 177 10^3/uL (150-400)
--- NOTE | 2018-04-23 08:27 | SOAPPROG ---
GIL Progress Note Assessment/Plan: [facility] Progress Note Assessment: 87 year old female with gallbladder presenting with RUQ pain, jaundice from cholangitis s/p ERCP with sphincterotomy and 15 mm bile duct stone removal. Today clinically improved with marginal improvement in her hepatic function panel. Additionally she has radiographic evidence of cholecystitis. Today she does not have RUQ tenderness and appears non toxic. Though no significant co-morbidities due to age she may not be the optimal candidate for cholecystectomy and the ERCP with sphincterotomy has decompressed the gallbladder. Plan: 1. Monitor LFTs tomorrow 2. Advance diet as tolerated 3. Continue antibiotics at least 7 days as she did have obstruction and likely also has cholecystitis 4. Will continue to follow tomorrow 5. May require surgical consultation if signs of cholecystitis recur Kristie Morrissey MD 04/23/18 08:25 04/23/18 14:52 Subjective: no pain,no bleeding, still jaundiced, hungry, trying to sleep Objective: Vital Signs Temp Pulse Resp BP Pulse Ox 36.4 C 77 14 123/95 H 96 04/23/18 08:00 04/23/18 08:00 04/23/18 08:00 04/23/18 08:00 04/23/18 08:00 Laboratory Results 04/23/18 05:05 04/23/18 05:05 04/22/18 04/23/18 04/24/18 05:59 05:59 05:59 Intake Total 500 750 Output Total 600 1100 200 Balance -100 -350 -200 PT 12.6 SEC (12.0-15.0) 04/21/18 13:05 INR 0.92 (0.83-1.16) 04/21/18 13:05 Physical Exam - Physical Exam General Appearance: alert, no apparent distress EENT: scleral icterus (R), scleral icterus (L) Respiratory: lungs clear Cardiac/Chest: regular rate, rhythm Abdomen: normal bowel sounds, non-tender, soft Skin: jaundice Neuro/Psych: oriented x 3 ICD10 Worksheet Patient Problems: Problems Problem Status Onset Diarrhea Acute Dizziness Acute Norovirus Acute
[2018-04-23] MEDS: ERTAPENEM 1 GM in NS 100 ML IV SCH (10:15)
--- NOTE | 2018-04-23 15:28 | HOSPPROG ---
Hospitalist Progress Note Assessment/Plan: This is an 87 y/o female with history of chronic RLE lymphedema presenting to the emergency room with jaundice and RUQ pain found to have cholangitis/ choledocholithiasis # choledocholithiasis: with associated cholangitis and biliary obstruction now s /p ERCP with sphincterotomy and removal of stone, she has improved since the procedure with declining LFTs and improvement in her pain. She is tolerating clear liquid diet. Plan to continue abx for total of 7 days. # obstructive LFT elevation: as above, improving # hypokalemia: repleted # anemia: mild and stable # chronic RLE edema: per patient has been present 60 years at least and stable, asymptomatic # IP status # clear liquid diet, will advance as tolerated # Patient new to my care. Old records reviewed and summarized as above Subjective: patient notes she has had improvement in her sxs today, she is tolerating clear liquids, still with discomfort however Objective: Vital Signs Temp Pulse Resp BP Pulse Ox 36.3 C 76 12 150/55 H 96 04/23/18 11:10 04/23/18 11:10 04/23/18 11:10 04/23/18 11:10 04/23/18 11:10 Laboratory Results 04/23/18 05:05 04/23/18 05:05 04/22/18 04/23/18 04/24/18 05:59 05:59 05:59 Intake Total 500 750 Output Total 600 1100 200 Balance -100 -350 -200 PT 12.6 SEC (12.0-15.0) 04/21/18 13:05 INR 0.92 (0.83-1.16) 04/21/18 13:05 awake alert thin anicteric op clear rrr no mrg cta b soft bs present rle with significant swelling, lle no cce warm dry well perfused oriented appropriate ICD10 Worksheet Patient Problems: Problems Problem Status Onset Dizziness Acute Diarrhea Acute Norovirus Acute
--- NOTE | 2018-04-23 16:30 | ASMTCMCOM ---
CM Note CM Note Notes: Met with pt to discuss PT/OT recommendations but pt seemed a little confused, unclear if she was sundowning. She lives at [facility]. Therapies recommend home care but pt could not make a decision, CM to follow up maybe earlier in the day. DC Plan: Home Care Date Signed: 04/23/2018 04:30 PM Electronically Signed By:Emerald Bailey RN
[2018-04-23] MEDS ORDERED: POTASSIUM CL 10 MEQ TAB PO ONE (20:09)
--- NOTE | 2018-04-23 21:05 | EDPHY ---
H & P Stated Complaint: yellow face/eyes Time Seen by Provider: 04/21/18 13:02 - Personal History Current Tetanus/Diphtheria Vaccine: Yes - Medical/Surgical History Hx Asthma: No Hx Chronic Respiratory Disease: No Hx Diabetes: No Hx Cardiac Disease: No Hx Renal Disease: No Hx Cirrhosis: No Hx Alcoholism: No Hx HIV/AIDS: No Hx Splenectomy or Spleen Trauma: No Other PMH: basil cell carcinoma, right le edema since age 20. - Social History Smoking Status: Never smoked Constitutional: Initial Vital Signs Temperature (C) 36.7 C 04/21/18 13:10 Heart Rate 81 04/21/18 13:10 Respiratory Rate 15 04/21/18 13:10 Blood Pressure 138/85 H 04/21/18 13:10 O2 Sat (%) 96 04/21/18 13:10 O2 Delivery Mode Room Air Allergies/Adverse Reactions: No Known Allergies Allergy (Verified 04/21/18 15:28) Home Medications: Medication Instructions Recorded NK [No Known Home Meds] 03/21/18 Medical Decision Making - Data Points Laboratory Results: Laboratory Results 04/21/18 13:05 04/21/18 13:05 Medications Given: Sodium Chloride (Ns) 1,000 mls @ 100 mls/hr IV CONT GOYO Stop: 04/24/18 01:59 Last Admin: 04/22/18 19:52 Dose: 1,000 mls Ertapenem 1 gm/ Sodium (Chloride) 100 mls @ 200 mls/hr IV DAILY GOYO PRN Reason: Protocol Stop: 05/22/18 12:29 Last Admin: 04/23/18 10:15 Dose: 100 mls Discontinued Medications Sodium Chloride (Ns) 500 mls @ 1,000 mls/hr IV EDNOW ONE PRN Reason: Protocol Stop: 04/21/18 13:54 Last Admin: 04/21/18 14:45 Dose: 500 mls Ceftriaxone Sodium/Dextrose (Rocephin 1 Gm (Premix)) 50 mls @ 100 mls/hr IV DAILY GOYO PRN Reason: Protocol Stop: 05/21/18 15:29 Last Admin: 04/22/18 13:03 Dose: Not Given Metronidazole/Sodium Chloride (Flagyl 500 Mg (Premix)) 100 mls @ 100 mls/hr IV Q8H GOYO PRN Reason: Protocol Stop: 05/21/18 15:59 Last Admin: 04/22/18 13:04 Dose: Not Given Sodium Chloride (Ns) 500 mls @ 1,000 mls/hr IV EDNOW ONE PRN Reason: Protocol Stop: 04/21/18 15:47 Last Admin: 04/21/18 16:31 Dose: 500 mls Lactated Ringer's (Lr) 1,000 mls @ 0 mls/hr IV ONCE ONE PRN Reason: KVO Stop: 04/22/18 08:31 Last Admin: 04/22/18 09:11 Dose: 1,000 mls Potassium Chloride (Klor-Con) 10 - 40 meq PO ONCE ONE PRN Reason: Protocol Stop: 04/23/18 20:10 Last Admin: 04/23/18 20:17 Dose: 10 meq Departure - Departure Disposition: [facility] Acute Condition: Good
[2018-04-24 05:37] LABS: PLATELET COUNT 198 10^3/uL (150-400)
[2018-04-24] MEDS: ERTAPENEM 1 GM in NS 100 ML IV SCH (09:27)
--- NOTE | 2018-04-24 11:53 | HOSPPROG ---
Hospitalist Progress Note Assessment/Plan: This is an 87 y/o female with history of chronic RLE lymphedema presenting to the emergency room with jaundice and RUQ pain found to have cholangitis/ choledocholithiasis # choledocholithiasis: with associated cholangitis and biliary obstruction now s /p ERCP with sphincterotomy and removal of stone, she has improved since the procedure with declining LFTs and improvement in her pain. She is tolerating clear liquid diet. Plan to continue abx for total of 7 days. # obstructive LFT elevation: as above, improving # hypokalemia: repleted # anemia: mild and stable # chronic RLE edema: per patient has been present 60 years at least and stable, asymptomatic # IP status # clear liquid diet, will advance as tolerated # Patient new to my care. Old records reviewed and summarized as above Objective: Vital Signs Temp Pulse Resp BP Pulse Ox 36.4 C 95 18 118/67 94 04/24/18 11:20 04/24/18 11:20 04/24/18 11:20 04/24/18 11:20 04/24/18 11:20 Laboratory Results 04/24/18 05:18 04/24/18 05:18 04/23/18 04/24/18 04/25/18 05:59 05:59 05:59 Intake Total 750 320 Output Total 1100 1450 400 Balance -350 -1130 -400 PT 12.6 SEC (12.0-15.0) 04/21/18 13:05 INR 0.92 (0.83-1.16) 04/21/18 13:05 ICD10 Worksheet Patient Problems: Problems Problem Status Onset Dizziness Acute Diarrhea Acute Norovirus Acute Choledocholithiasis with acute cholecystitis Acute Jaundice Acute
--- NOTE | 2018-04-24 12:14 | SOAPPROG ---
GIL Progress Note Assessment/Plan: [facility]astro[facility]ology of [facility] Progress Note Assessment: 87 year old female with gallbladder presenting with RUQ pain, jaundice from cholangitis s/p ERCP with sphincterotomy and 15 mm bile duct stone. Overall patient and labs are improving. Plan: 1. Advance diet as tolerated 2. Continue antibiotics at least 7 days as she did have obstruction and likely also has cholecystitis 3. Will continue to follow tomorrow if still hospitalized 4. Okay if patient is discharge to home today Kristie Morrissey MD 04/24/18 12:12 04/24/18 12:15 Subjective: Patient continues to complain of extreme fatigue and walking during today's interview Objective: Vital Signs Temp Pulse Resp BP Pulse Ox 36.4 C 95 18 118/67 94 04/24/18 11:20 04/24/18 11:20 04/24/18 11:20 04/24/18 11:20 04/24/18 11:20 Laboratory Results 04/24/18 05:18 04/24/18 05:18 04/23/18 04/24/18 04/25/18 05:59 05:59 05:59 Intake Total 750 320 Output Total 1100 1450 400 Balance -350 -1130 -400 PT 12.6 SEC (12.0-15.0) 04/21/18 13:05 INR 0.92 (0.83-1.16) 04/21/18 13:05 Date 04/24/2018 LFT TB 1.2 AST 39 ALT 80 alkaline phosphatase 262 albumin 2.3 Physical Exam - Physical Exam General Appearance: alert, no apparent distress Respiratory: lungs clear, normal breath sounds Cardiac/Chest: normal peripheral pulses Abdomen: normal bowel sounds, non-tender, soft Skin: pallor Neuro/Psych: oriented x 3, depressed affect ICD10 Worksheet Patient Problems: Problems Problem Status Onset Choledocholithiasis with acute cholecystitis Acute Jaundice Acute Diarrhea Acute Dizziness Acute Norovirus Acute
[2018-04-24] MEDS ORDERED: POTASSIUM CL 10 MEQ TAB PO ONE (13:26)
--- NOTE | 2018-04-24 14:09 | HOSPPROG ---
Hospitalist Progress Note Assessment/Plan: This is an 87 y/o female with history of chronic RLE lymphedema presenting to the emergency room with jaundice and RUQ pain found to have cholangitis/ choledocholithiasis # choledocholithiasis: with associated cholangitis and biliary obstruction now s /p ERCP with sphincterotomy and removal of stone, she has improved since the procedure with declining LFTs and improvement in her pain. She is tolerating clear liquid diet and will advance to regular diet today. Currently on ertapenem day 3 with a plan for 7 days total abx. When ready for dc could complete course of abx on cipro/flagyl. # obstructive LFT elevation: as above, improving # hypokalemia: repleted # anemia: mild and stable # chronic RLE edema: per patient has been present 60 years at least and stable, asymptomatic # IP status # clear liquid diet, will advance as tolerated # Dispo: patient continues to feel very weak, has not had anything other than clear liquids yet and is not feeling ready to go home--likely dc in coming 1-2 days. Patient would like referral to surgery after discharge to determine if she should have her gallbladder removed--very adamant that she does not want this to ever happen again and would like GB removal. Subjective: no significant overnight events, patient continues to feel quite weak, she has been walking only a little bit, she has not had regular food yet Objective: Vital Signs Temp Pulse Resp BP Pulse Ox 36.4 C 95 18 118/67 94 04/24/18 11:20 04/24/18 11:20 04/24/18 11:20 04/24/18 11:20 04/24/18 11:20 Laboratory Results 04/24/18 05:18 04/24/18 05:18 04/23/18 04/24/18 04/25/18 05:59 05:59 05:59 Intake Total 750 320 Output Total 1100 1450 400 Balance -350 -1130 -400 PT 12.6 SEC (12.0-15.0) 04/21/18 13:05 INR 0.92 (0.83-1.16) 04/21/18 13:05 awake alert thin scleral icterus op clear rrr no mrg cta b soft bs present rle with significant swelling, lle no cce warm dry well perfused oriented appropriate - Time Spent With Patient Time Spent with Patient: greater than 35 minutes Time Spent with Patient: Greater than 35 minutes spent on this patients care, greater than 50% of time spent counseling, educating, and coordinating care regarding the above mentioned plan. ICD10 Worksheet Patient Problems: Problems Problem Status Onset Choledocholithiasis with acute cholecystitis Acute Jaundice Acute Diarrhea Acute Dizziness Acute Norovirus Acute
--- NOTE | 2018-04-24 16:05 | ASMTCMCOM ---
CM Note CM Note Notes: CM met with pt to discuss therapies recommendation of homecare, pt appeared confused and did not seem to understand how the process of home care would work. RN notified CM that pt is on IV antibiotics, possibly for next 7 days per MD report. Pt reports she was last discharged to [facility] and said that she does not feel safe going home with Homecare/ struggled to comprehend how that would work. Pt does not have caregivers to assist her with IV antibiotics. CM submit referral to [facility] for review. Plan: C vs SNF Date Signed: 04/24/2018 04:05 PM Electronically Signed By:ROEL Lucas
[2018-04-25 05:04] LABS: PLATELET COUNT 203 10^3/uL (150-400)
[2018-04-25] MEDS: ERTAPENEM 1 GM in NS 100 ML IV SCH (09:30)
--- NOTE | 2018-04-25 14:40 | HOSPPROG ---
Hospitalist Progress Note Assessment/Plan: This is an 87 y/o female with history of chronic RLE lymphedema presenting to the emergency room with jaundice and RUQ pain found to have cholangitis/ choledocholithiasis # choledocholithiasis: with associated cholangitis and biliary obstruction now s /p ERCP with sphincterotomy and removal of stone -regular diet -ertapenem day 4 with a plan for 7 days total abx. When ready for dc could complete course of abx on cipro/flagyl. # obstructive LFT elevation: as above, improving # hypokalemia: repleted # anemia: mild and stable # chronic RLE edema: per patient has been present 60 years at least and stable, asymptomatic # IP status #sundowns in the evenings #plan: monitor a bit longer, she is still very week -she'd like referral to surgery to see if she should get her GB removed Subjective: Cammie said she cont to feel too weak for dc. Objective: Vital Signs Temp Pulse Resp BP Pulse Ox 36.4 C 72 14 120/63 95 04/25/18 11:32 04/25/18 11:32 04/25/18 11:32 04/25/18 11:32 04/25/18 11:32 Laboratory Results 04/25/18 04:53 04/25/18 04:53 04/24/18 04/25/18 04/26/18 05:59 05:59 05:59 Intake Total 320 450 Output Total 1450 1550 850 Balance -1130 -1100 -850 PT 12.6 SEC (12.0-15.0) 04/21/18 13:05 INR 0.92 (0.83-1.16) 04/21/18 13:05 - Physical Exam Constitutional: not in pain, chronically ill appearing, other (thin) Eyes: PERRL Ears, Nose, Mouth, Throat: hearing normal Cardiovascular: regular rate and rhythym Respiratory: no respiratory distress Gastrointestinal: normoactive bowel sounds, soft, non-tender abdomen Skin: warm Musculoskeletal: generalized weakness Neurologic: AAOx3 Psychiatric: interacting appropriately ICD10 Worksheet Patient Problems: Problems Problem Status Onset Choledocholithiasis with acute cholecystitis Acute Jaundice Acute Diarrhea Acute Dizziness Acute Norovirus Acute
--- NOTE | 2018-04-25 15:04 | ASMTCMCOM ---
CM Note CM Note Notes: Pts case discussed w/ Grazyna Wells NP. Pt will be on oral augmentin when she discharges from the hospital. [facility] has declined her. CM met w/ pt for dispo planning. Therapies are recommending SNF. Pt is agreeable to HC services. Referral sent to [facility]. [facility] is able to accept. Pts PCP is Dr. Ruiz at [facility]. CM called admissions and had them input PCP info into demographics in [facility]. CM made pt an appointment w/ her PCP. CM to follow. Plan: [facility]; PT, OT [address] [address] Kika Ruiz MD 05/03/18 at 1:30PM Date Signed: 04/25/2018 03:03 PM Electronically Signed By:ROEL Murillo
[2018-04-25] MEDS: ENOXAPARIN 40 MG/0.4 ML SYR SC SCH (16:23)
[2018-04-25] MEDS ORDERED: ACETAMINOPHEN 325 MG TAB PO PRN (17:15)
--- NOTE | 2018-04-25 17:34 | SOAPPROG ---
SOAP Progress Note Assessment/Plan: [facility] Progress Note Assessment: 87 year old female with gallbladder presenting with RUQ pain, jaundice from cholangitis s/p ERCP with sphincterotomy and 15 mm bile duct stone. Overall patient and labs are improving. Plan: 1. Advance diet as tolerated 2. Continue antibiotics at least 7 days as she did have obstruction and likely also has cholecystitis 3. Agree with surgery referral to discuss benefits and risks of cholecystectomy 4. Signing off today Kristie Morrissey MD 04/25/18 17:33 Subjective: up and walking to bathroom with assistance, no pain, jaundice better Objective: Vital Signs Temp Pulse Resp BP Pulse Ox 36.1 C 93 14 145/76 H 93 04/25/18 16:00 04/25/18 16:00 04/25/18 16:00 04/25/18 16:00 04/25/18 16:00 Laboratory Results 04/25/18 04:53 04/25/18 04:53 04/24/18 04/25/18 04/26/18 05:59 05:59 05:59 Intake Total 320 450 Output Total 1450 1550 850 Balance -1130 -1100 -850 PT 12.6 SEC (12.0-15.0) 04/21/18 13:05 INR 0.92 (0.83-1.16) 04/21/18 13:05 Physical Exam - Physical Exam General Appearance: alert, no apparent distress Neck: non-tender Respiratory: chest non-tender, lungs clear, normal breath sounds Cardiac/Chest: regular rate, rhythm Abdomen: normal bowel sounds, non-tender, soft Skin: normal color Neuro/Psych: alert, normal mood/affect, oriented x 3 ICD10 Worksheet Patient Problems: Problems Problem Status Onset Choledocholithiasis with acute cholecystitis Acute Jaundice Acute Diarrhea Acute Dizziness Acute Norovirus Acute
[2018-04-26] MEDS: ERTAPENEM 1 GM in NS 100 ML IV SCH (09:02)
[2018-04-26] MEDS: ENOXAPARIN 40 MG/0.4 ML SYR SC SCH (09:03)
[2018-04-26] MEDS ORDERED: POLYETHYLENE GLYCOL 3350 17 GM PKT PO PRN (09:42)
[2018-04-26] MEDS ORDERED: MAGNESIUM HYDROXIDE 30 ML UDCUP PO PRN (09:42)
[2018-04-26] MEDS ORDERED: BISACODYL 10 MG SUPP PR PRN (09:42)
[2018-04-26] MEDS ORDERED: LACTULOSE 20 GM/30 ML UDCUP PO PRN (09:42)
--- NOTE | 2018-04-26 13:50 | HOSPPROG ---
Hospitalist Progress Note Assessment/Plan: This is an 87 y/o female with history of chronic RLE lymphedema presenting to the emergency room with jaundice and RUQ pain found to have cholangitis/ choledocholithiasis # choledocholithiasis: with associated cholangitis and biliary obstruction now s /p ERCP with sphincterotomy and removal of stone -regular diet -ertapenem day 5 with a plan for 7 days total abx. When ready for dc could complete course of abx on cipro/flagyl. # obstructive LFT elevation: as above, improving # hypokalemia: replete # anemia: mild and stable # chronic RLE edema: per patient has been present 60 years at least and stable, asymptomatic # IP status #sundowns in the evenings #plan: Taylor is medically ready for dc, but says she is unable to take care of herself at home, PT is recommending SNF. spoke w CM about looking into a SNF. -she'd like referral to surgery to see if she should get her GB removed Subjective: taylor said she is feeling fine with diet, eating well but is too nervous to return home. Says she is too weak. Objective: Vital Signs Temp Pulse Resp BP Pulse Ox 36.6 C 89 18 141/86 H 97 04/26/18 07:58 04/26/18 07:58 04/26/18 07:58 04/26/18 07:58 04/26/18 07:58 Laboratory Results 04/25/18 04:53 04/25/18 04:53 04/25/18 04/26/18 04/27/18 05:59 05:59 05:59 Intake Total 450 350 Output Total 1550 2100 600 Balance -1100 -1750 -600 PT 12.6 SEC (12.0-15.0) 04/21/18 13:05 INR 0.92 (0.83-1.16) 04/21/18 13:05 - Physical Exam Constitutional: no apparent distress, other (thin) Eyes: PERRL Ears, Nose, Mouth, Throat: hearing normal Cardiovascular: regular rate and rhythym Respiratory: no respiratory distress Gastrointestinal: normoactive bowel sounds, soft, non-tender abdomen Skin: warm Musculoskeletal: generalized weakness Neurologic: AAOx3 Psychiatric: interacting appropriately, poor memory ICD10 Worksheet Patient Problems: Problems Problem Status Onset Choledocholithiasis with acute cholecystitis Acute Jaundice Acute Diarrhea Acute Dizziness Acute Norovirus Acute
--- NOTE | 2018-04-26 16:44 | ASMTCMCOM ---
CM Note CM Note Notes: Spoke with Grazyna Wells NP who states the patient is extremely anxious about returning home to independent living. PT had recommended home care and it was set up with [facility]. The patient most likely needs a higher level of care at [facility] like Assisted Living. Called patient's social science research assistant, Priscilla [phone] at [facility] and left a message for her to call us. Priscilla has information about patient's cognitive status and can help with looking at what needs to be done to move patient to assisted living. Patient is close to being ready for discharge. spoke with patient who states her brother is only a year younger and lives in [place] and cannot help. Patient states she does not have an MDPOA but has filled out paperwork regarding her wishes for care. She states [facility] should have it on file. CM to inquire about it with Priscilla tomorrow.Patient does have a friend, Keri Wilkes who has been helping her pay bills. D/C plan: coordinate with [facility] social science research assistant, Priscilla, to help patient move from independent living to assisted living if possible. Patient will still need home health care services with [facility]. Date Signed: 04/26/2018 04:43 PM Electronically Signed By:Grecia Sargent LCSW
[2018-04-26] MEDS: SENNOSIDES/DOCUSATE SODIUM TAB PO SCH (20:17)
[2018-04-27 08:10] VITALS: BP 123/82
[2018-04-27] MEDS: ERTAPENEM 1 GM in NS 100 ML IV SCH (08:44)
[2018-04-27] MEDS: ENOXAPARIN 40 MG/0.4 ML SYR SC SCH (08:45)
[2018-04-27] MEDS: SENNOSIDES/DOCUSATE SODIUM TAB PO SCH (08:54)
--- NOTE | 2018-04-27 10:04 | PDIAF ---
- Diagnosis Diagnosis: cholecystitis Code Status: Do Not Resuscitate - Medication Management Discharge Medications: electronically signed and located in the Home Medication List. PICC Care - Routine: N/A - Orders Services needed: Home Care, Physical Therapy, Occupational Therapy Home Care Face to Face: I certify that this patient was under my care and that I had the required [id number] encounter meeting the encounter requirements on the discharge day. My findings support the fact that the patient is homebound as defined in Home Care Face to Face Continued: CMS Chapter 7 Medicare Benefits Manual 30.1.1 , The condition of the patient is such that there exists a normal inability to leave home and consequently, leaving home would require a considerable and taxing effort. Isolation Type: None Diet Recommendation: low fat - Labs/Radiology LFT Date: 05/02/18 - Follow Up Care Current Providers and Referrals: Patient,NotPresent [Unknown] - Kristie Morrissey MD [Medical Doctor] -
--- NOTE | 2018-04-27 10:38 | PDIAF ---
- Diagnosis Diagnosis: cholecystitis Code Status: Do Not Resuscitate - Medication Management Discharge Medications: electronically signed and located in the Home Medication List. PICC Care - Routine: N/A - Orders Services needed: Home Care, Registered Nurse, Physical Therapy, Occupational Therapy Home Care Face to Face: I certify that this patient was under my care and that I had the required [id number] encounter meeting the encounter requirements on the discharge day. My findings support the fact that the patient is homebound as defined in Home Care Face to Face Continued: CMS Chapter 7 Medicare Benefits Manual 30.1.1 , The condition of the patient is such that there exists a normal inability to leave home and consequently, leaving home would require a considerable and taxing effort. Isolation Type: None Diet Recommendation: low fat - Labs/Radiology LFT Date: 05/02/18 - Follow Up Care Current Providers and Referrals: Patient,NotPresent [Unknown] - Kristie Morrissey MD [Medical Doctor] -
--- NOTE | 2018-04-27 11:10 | ASMTDCNOTE ---
Case Management Discharge Discharge Order Complete? Answers: Yes Patient to Obtain Answers: Independently Medications Transportation Arranged Answers: Family/Friends Faxed Final Orders Answers: Yes Agency/Facility Transfer Answers: Yes Report Printed & Faxed to Receiving Agency Discharge Comments Notes: D/w LOG MANAGER, final orders in. Tenisha at [facility] notified for (RN,PT,OT) CM spoke with Priscilla at [facility], she is closely following pt for appropriateness for AL. Pt's friend Pepper to come and take pt to appt she has today at the [facility] and will take her home. Date Signed: 04/27/2018 11:09 AM Electronically Signed By:Emerald Bailey RN
--- NOTE | 2018-04-27 13:14 | PDIAF ---
- Diagnosis Diagnosis: cholecystitis Code Status: Do Not Resuscitate - Medication Management Discharge Medications: electronically signed and located in the Home Medication List. PICC Care - Routine: N/A - Orders Services needed: Home Care, Registered Nurse, Physical Therapy, Occupational Therapy Home Care Face to Face: I certify that this patient was under my care and that I had the required olpa-as-[id number] encounter meeting the encounter requirements on the discharge day. My findings support the fact that the patient is homebound as defined in Home Care Face to Face Continued: CMS Chapter 7 Medicare Benefits Manual 30.1.1 , The condition of the patient is such that there exists a normal inability to leave home and consequently, leaving home would require a considerable and taxing effort. Isolation Type: None Diet Recommendation: low fat - Labs/Radiology LFT Date: 05/02/18 - Follow Up Care Current Providers and Referrals: Patient,NotPresent [Unknown] - Kristie Morrissey MD [Medical Doctor] -
--- NOTE | 2018-04-27 13:31 | GDS ---
[f rep st] DISCHARGE SUMMARY DISCHARGE DIAGNOSES: 1. Choledocholithiasis. 2. Obstructive LFT elevation. 3. Hypokalemia. 4. Anemia. 5. Chronic right lower extremity edema. CONSULTATIONS: Gastroenterology. STUDIES AND PROCEDURES DONE: 1. Abdominal MRI. 2. Abdominal ultrasound. 3. ERCP. PHYSICAL EXAM: GENERAL: The patient is alert. VITAL SIGNS: Afebrile at 37.2, pulse is 95, respira tory rate is 12, blood pressure is 123/82, saturating 93% on room air. I have seen and evaluated the patient on the day of discharge. HOSPITAL COURSE: The patient is an 87-year-old female with a history of chronic right lower extremit y lymphedema, presents to the emergency room with complaints of abdominal pain. She was evaluated an d diagnosed with: 1. Choledocholithiasis. This was associated with cholangitis as well as biliary obstruction. She r eceived an ERCP sphincterotomy during this hospitalization with removal of stone. She is tolerating a regular diet. She has been treated with antibiotic therapy. She received ertapenem x5 days and wi ll receive outpatient oral ciprofloxacin and Flagyl for 1 more day. She seems to be resolving from t his condition. 2. Obstructive LFT elevation. This is improving. 3. Hypokalemia. This has resolved with repletion. 4. Anemia. This is mild and stable with no signs of blood loss. 5. Chronic lymphedema. This has been present for the last 60 years and is stable. DISPOSITION: The patient lives independently at [facility]. I have ordered home healthcare for her at the time of disposition. I have discussed in depth with the outpatient case manager regarding this patient' s disposition. We have increased her cares at [facility] and recommended that she may potentially r equire transition to assisted living in the near future. The patient feels ready to be discharged ho vt and will receive home care in the outpatient setting. I have spent greater than 35 minutes in the care, coordination and management of this patient's dispo sition. /[id number]/MODL
== END 2018-04-27 14:38 | disposition home health service (06) | DRG 446 ==
LOC: EDUNIT# → F3E 16:49
PROVIDERS: ADMIT Internal Medicine; ATTEND Internal Medicine
PROC: 0FC98ZZ Extirpation of Matter from Common Bile Duct, Via Natural or Artificial Opening Endoscopic (ICD-10-PCS; principal; 2018-04-22 10:15)
DX: K80.31 Calculus of bile duct with cholangitis, unspecified, with obstruction (principal); I89.0 Lymphedema, not elsewhere classified; E87.6 Hypokalemia; D64.9 Anemia, unspecified; Z66 Do not resuscitate
CPT/HCPCS: 97116-GP; 97161-GP; 97165-GO; 97535-GO; A9585; C1769; J0330; J0696; J1100; J1335; J1650; J2405; J2704; J3010; Q9961